=== PATIENT | female | born 1965 | race Caucasian/White ===

== ENCOUNTER → 2016-10-28 | Outpatient (CLI) | payer OTHER ==
--- NOTE | 2016-10-29 13:55 | MR ---
MR right wrist HISTORY: Radial styloid tenosynovitis HISTORY: Pain and swelling Multiplanar multisequence imaging through the right wrist Correlation to plain film 13 April 2015 There is motion on the exam. Fluid signal is present at the radial aspect of the wrist and also ulnar aspect at the radiocarpal joint extending into the the radial ulnar joint. Flexor and extensor tendo ns are intact. Bones marrow signal is maintained. There is thickening of the tendon sheaths along the radial aspect of the wrist at extensor pollicis b jackie, abductor pollicis longus with some peritendinous edema, increased signal within the tendon and tendon thickening compatible with patient's history of de Quervain's tenosynovitis. Subchondral geode formation present at the carpometacarpal joint of the first digit with some chondro malacia, subchondral eburnation and marginal spurring. Triangular fibrocartilage is somewhat out of p tank on coronal images, there is some increased signal within the mid substance suspicious for at krystle st a partial tear. Fluid in the radioulnar joint is suspicious for tear. Scapholunate, lunotriquetral ligaments felt to be intact. IMPRESSION: Findings compatible with patient's history. Difficult to exclude a tear of the triangle f ibrocartilage
== END | disposition home or self-care (01) ==
LOC: RADMRIMAIN 17:37
PROVIDERS: ATTEND Orthopaedic Surgery Hand Surgery
DX: M65.4 Radial styloid tenosynovitis [de Quervain] (principal)

== ENCOUNTER 2016-12-07 10:23 | Emergency (ER) | payer OTHER ==
[2016-12-07] MEDS ORDERED: IPRATROPIUM-ALBUTEROL 3 ML NEB INHALATION STA (11:06)
--- NOTE | 2016-12-07 11:10 | ED ---
General Adult HPI - General Chief complaint: Upper Respiratory Infection Stated complaint: Cough Time Seen by Provider: 12/07/16 11:03 Source: patient, RN notes reviewed Mode of arrival: ambulatory Limitations: no limitations - History of Present Illness Initial comments: Patient is a pleasant 51-year-old female presenting to the emergency Department with complaints of cough. Patient has had somewhat of a cough on and off for the past couple of weeks. Patient associates this with children with illnesses that she is exposed to. Patient states cough has been worse the past 3 days. Patient states she has sternal discomfort with cough only. Patient states she has headache with cough only. Patient believes she had a fever last night, subjective. Cough is dry nonproductive. Patient does feel somewhat short of breath. Patient has not been smoking for the past several days because of the cough. No leg pain or leg swelling. - Related Data Home Medications Medication Instructions Recorded Confirmed Omeprazole [PriLOSEC] 20 mg PO BID 09/05/14 12/07/16 Gabapentin [Neurontin] 300 mg PO HS 12/07/16 12/07/16 rOPINIRole HCL [Requip] 2 mg PO BID 12/07/16 12/07/16 Previous Rx's Medication Instructions Recorded Albuterol Inhaler [Ventolin Hfa 2 puff INHALATION Q4HR PRN #1 12/07/16 Inhaler] inhaler Azithromycin [Zithromax Z-pack] 250 mg PO DIRECTED #6 tab 12/07/16 methylPREDNISolone Dose Pack 24 mg PO DAILY #1 tab 12/07/16 [Medrol Dose Pack] Allergies Allergy/AdvReac Type Severity Reaction Status Date / Time Penicillins Allergy Anaphylaxis Verified 12/07/16 11:38 pregabalin [From Lyrica] AdvReac Hallucinati Verified 12/07/16 11:38 ons tramadol [From Ultram] AdvReac Itching Verified 12/07/16 11:38 sleep aides AdvReac night Uncoded 12/07/16 11:38 terrors Review of Systems ROS Statement: Those systems with pertinent positive or pertinent negative responses have been documented in the HPI. ROS Other: All systems not noted in ROS Statement are negative. Constitutional: Reports: fever, chills Eyes: Denies: eye pain ENT: Denies: ear pain Respiratory: Reports: cough Cardiovascular: Reports: chest pain (Only with cough) Endocrine: Reports: fatigue Gastrointestinal: Denies: abdominal pain Genitourinary: Denies: dysuria Musculoskeletal: Denies: back pain Skin: Denies: rash Neurological: Denies: weakness Past Medical History Past Medical History: No Reported History Additional Past Medical History / Comment(s): restless leg History of Any Multi-Drug Resistant Organisms: None Reported Past Surgical History: Section, Hysterectomy Additional Past Surgical History / Comment(s): TOTAL HYSTERECTOMY. ALEJO FOOT SX AT AGE 9 NOT SURE WHAT THEY DID, RT KNEE SX HAS STAPLE IN PLACE, RT SHOULDER SX FOR BONE SPUR, DDD Past Anesthesia/Blood Transfusion Reactions: Postoperative Nausea & Vomiting ( PONV) Additional Past Anesthesia/Blood Transfusion Reaction / Comment(s): CLAUSTERPHOBIC Past Psychological History: No Psychological Hx Reported Smoking Status: Current every day smoker Past Alcohol Use History: Occasional Additional Past Alcohol Use History / Comment(s): STARTED SMOKING AT AGE 16 IS A SOME DAY SMOKER A PACK LASTS 1 WEEK Past Drug Use History: None Reported - Past Family History Father Family Medical History: Hypertension Additional Family Medical History / Comment(s): BACK SX -CHRONIC PAIN, Mother Additional Family Medical History / Comment(s): BACK SX PT'S TWIN TATY AND SISTER BOTH OF SUDDEN [place]'S General Exam Limitations: no limitations General appearance: alert, in no apparent distress Head exam: Present: atraumatic Eye exam: Present: normal appearance, PERRL ENT exam: Present: normal oropharynx Neck exam: Present: normal inspection Respiratory exam: Present: wheezes (With cough), rhonchi Cardiovascular Exam: Present: regular rate, normal rhythm GI/Abdominal exam: Present: soft. Absent: tenderness Extremities exam: Present: normal inspection. Absent: pedal edema, calf tenderness Neurological exam: Present: alert Psychiatric exam: Present: normal affect, normal mood Skin exam: Present: normal color Course Vital Signs 12/07/16 12/07/16 12/07/16 10:52 10:55 11:09 Temperature 99 F Pulse Rate 88 88 Respiratory 22 Rate Blood Pressure 137/61 O2 Sat by Pulse 99 Oximetry 12/07/16 11:20 Temperature Pulse Rate 88 Respiratory Rate Blood Pressure O2 Sat by Pulse Oximetry Medical Decision Making - Medical Decision Making Patient reexamined and resting comfortably in bed. Lungs with rhonchi. Patient states only mild improvement with nebulizer. Patient offered further evaluation with computed tomography scan however refuses and requests discharge. - Radiology Data Radiology results: image reviewed (Chest x-ray shows no acute process) Disposition Clinical Impression: Bronchitis Disposition: HOME SELF-CARE Condition: Stable Instructions: Acute Bronchitis (ED) Additional Instructions: Please follow-up with primary care physician this week. Return for difficulty breathing, chest pain, fevers, worsening symptoms or other concerns. Prescriptions: Albuterol Inhaler [Ventolin Hfa Inhaler] 2 puff INHALATION Q4HR PRN #1 inhaler PRN Reason: Dyspnea Azithromycin [Zithromax Z-pack] 250 mg PO DIRECTED #6 tab methylPREDNISolone Dose Pack [Medrol Dose Pack] 24 mg PO DAILY #1 tab Referrals: Malina Gonzales MD [STAFF PHYSICIAN] - 1-2 days Kaity Pelletier MD [STAFF PHYSICIAN] - 1-2 days Time of Disposition: 12:27
--- NOTE | 2016-12-07 12:15 | XR ---
EXAMINATION TYPE: XR chest 2V DATE OF EXAM: 12/07/2016 12:00 PM COMPARISON: 02/16/2016 HISTORY: 51-year-old female with cough TECHNIQUE: PA and lateral views FINDINGS: The cardiomediastinal silhouette, aorta, and pulmonary vasculature are within normal limits. Lungs an d pleural spaces are clear. IMPRESSION: No acute cardiopulmonary process.
[2016-12-07 13:15] VITALS: BP 119/62; PULSE 74; RESP 18; TEMP 98.9
== END 2016-12-07 13:15 | disposition home or self-care (01) ==
LOC: EC 10:23
DX: J40 Bronchitis, not specified as acute or chronic (principal); G25.81 Restless legs syndrome; F17.200 Nicotine dependence, unspecified, uncomplicated; Z79.899 Other long term (current) drug therapy; Z88.0 Allergy status to penicillin; Z88.6 Allergy status to analgesic agent; Z88.8 Allergy status to other drugs, medicaments and biological substances
CPT/HCPCS: 71020; 94640; 99283

== ENCOUNTER 2017-07-20 08:47 | Day surgery (SDC) | payer OTHER ==
[2017-07-14 14:17] VITALS: BMI 31.8
[~2017-07-20 08:47] MED LIST: LACTATED RINGERS 1,000 ML IV SCH
[2017-07-20] MEDS ORDERED: LIDOCAINE 1% 20 ML VIAL (10MG/ML) FOR IV START INTRADERMA ONE (10:12)
[2017-07-20] MEDS ORDERED: DEXAMETHASONE SOD PHOSPHATE 10 MG/ML 1 ML VIAL IV ONE (10:24)
[2017-07-20] MEDS ORDERED: ONDANSETRON 4 MG/2 ML VIAL IVP ONE ×2 (10:25→11:48)
[2017-07-20] MEDS ORDERED: PROPOFOL 10 MG/ML 20 ML VIAL IV ONE (11:02)
[2017-07-20] MEDS ORDERED: LIDOCAINE 1% INJ 10MG/ML (20 ML MDV) ONE (11:02)
--- NOTE | 2017-07-20 11:06 | P.GSHP ---
History of Present Illness H&P Date: 07/20/17 CHIEF COMPLAINT: GERD and colon screen HISTORY OF PRESENT ILLNESS: The patient is a 52-year-old female who presents with gastroesophageal reflux disease and need for colon screen. Upper and lower endoscopy were offered for further evaluation and management. PAST MEDICAL HISTORY: Please see list. PAST SURGICAL HISTORY: Please see list. MEDICATIONS: Please see list. ALLERGIES: Please see list. SOCIAL HISTORY: No illicit drug use FAMILY HISTORY: No reports of Crohn disease or ulcerative colitis. REVIEW OF ORGAN SYSTEMS: CONSTITUTIONAL: No reports of fevers or chills. GI: Denies any blood in stools or constipation. PHYSICAL EXAM: VITAL SIGNS: Stable GENERAL: Well-developed pleasant in no acute distress. HEENT: No scleral icterus. Extraocular movements grossly intact. Moist buccal mucosa. NECK: Supple without lymphadenopathy. CHEST: Unlabored respirations. Equal bilateral excursions. CARDIOVASCULAR: Regular rate and rhythm. Distal 2+ pulses. ABDOMEN: Soft, nondistended. MUSCULOSKELETAL: No clubbing, cyanosis, or edema. ASSESSMENT: 1. Gastroesophageal reflux disease 2. Colon screen. PLAN: 1. Recommend proceeding with an upper and lower endoscopy Past Medical History Past Medical History: GERD/Reflux, Rheumatoid Arthritis (RA) Additional Past Medical History / Comment(s): restless leg syndrome, migraines, last seizure 7 yrs ago- no rx, low BP, anemia, "low immune system" History of Any Multi-Drug Resistant Organisms: None Reported Past Surgical History: Section, Hysterectomy, Orthopedic Surgery Additional Past Surgical History / Comment(s): rt knee surgery as child, rt shoulder surgery for bone spurs, C/S x 3, Eliezer oophorectomy, eliezer wrist surgery, Past Anesthesia/Blood Transfusion Reactions: Postoperative Nausea & Vomiting ( PONV) Additional Past Anesthesia/Blood Transfusion Reaction / Comment(s): CLAUSTROPHOBIC Smoking Status: Current every day smoker - Past Family History Father Family Medical History: Hypertension Additional Family Medical History / Comment(s): BACK SX -CHRONIC PAIN, Mother Family Medical History: No Reported History Additional Family Medical History / Comment(s): BACK SX PT'S TWIN BRITHER AND SISTER BOTH OF SUDDEN RI'S Medications and Allergies Home Medications Medication Instructions Recorded Confirmed Type Omeprazole [PriLOSEC] 20 mg PO DAILY 09/05/14 07/20/17 History rOPINIRole HCL [Requip] 2 mg PO BID 07/14/17 07/20/17 History Allergies Allergy/AdvReac Type Severity Reaction Status Date / Time Penicillins Allergy Anaphylaxis Verified 07/14/17 14:08 pregabalin [From Lyrica] AdvReac Hallucinati Verified 07/14/17 14:08 ons tramadol [From Ultram] AdvReac Itching Verified 07/14/17 14:08 sleep aides AdvReac night Uncoded 07/14/17 14:08 terrors Surgical - Exam Vital Signs Temp Pulse Resp BP Pulse Ox 97.5 F L 69 18 119/70 99 07/20/17 10:06 07/20/17 10:06 07/20/17 10:06 07/20/17 10:06 07/20/17 10:06
--- NOTE | 2017-07-20 11:27 | P.PCN ---
Date of Procedure: 07/20/17 Description of Procedure: PREOPERATIVE DIAGNOSIS: Colonoscopy screening. POSTOPERATIVE DIAGNOSIS: Colonoscopy screening. Colon rectal polyps. OPERATION: Colonoscopy to the ileocecal valve and appendiceal orifice. Colonoscopy cold forceps biopsies. SURGEON: Zina Cano MD. ANESTHESIA: MAC. INDICATIONS: The patient is a 52-year-old female who presents for colonoscopy screening. Benefits and risks were described and informed consent was obtained. DESCRIPTION OF PROCEDURE: The patient had undergone Gatorade, MiraLAX and Dulcolax prep. She had been brought into the operating room and laid in the left lateral decubitus position. After adequate intravenous sedation, the rectum was examined with 2% lidocaine jelly. External hemorrhoids were encountered. The rectal tone was within normal limits. No lesions were palpated in the rectal vault. An Olympus colonoscope was advanced until the ileocecal valve and appendiceal orifice were clearly viewed. The prep was fair with visualization of the mucosal folds. The scope was removed with visualization of each mucosal fold. No scattered diverticulosis was encountered. Colonic polyps cold forcep biopsy. No evidence of focal colitis was found. Retroflexion of the scope demonstrated grade 1 internal hemorrhoids without active bleeding or inflammation. The colon was desufflated. The patient had tolerated the procedure well. Withdrawal time was over 6 minutes. FINDINGS: Internal hemorrhoids, grade 1 External hemorrhoids, grade 1. No arteriovenous malformations. Removal of 1 polyp: - Cold forceps biopsy at 30 cm from the anal verge, 4 mm polyp. No large diverticulosis. No focal colitis. RECOMMENDATIONS: Repeat colonoscopy in 5 years, 2022.
--- NOTE | 2017-07-20 11:29 | P.PCN ---
Date of Procedure: 07/20/17 Description of Procedure: PREOPERATIVE DIAGNOSIS: Gastroesophageal reflux disease. POSTOPERATIVE DIAGNOSIS: Gastritis. Gastroesophageal reflux disease. Diaphragmatic hiatal hernia without obstruction. OPERATION: Esophagogastroduodenoscopy with biopsies along antrum. SURGEON: Zina Cano MD ANESTHESIA: MAC. INDICATIONS: The patient is a 52-year-old female who presents with a history of reflux disease. Benefits and risks of the procedure were described. Informed consent was obtained. DESCRIPTION: The patient was brought into the endoscopy suite and laid in the left lateral decubitus position. An Olympus gastroscope was passed along the posterior oropharynx down to the distal esophagus where the squamocolumnar junction was encountered at 35 cm from the incisors. The stomach was entered and no bile reflux was found. Additional findings are listed below. Biopsies with cold forceps were obtained of the antrum. The first through third portion of the duodenum was examined and unremarkable. Retroflexion of the scope confirmed Hill grade 4 lower esophageal valve. The squamocolumnar junction demostrated LA grade B erosive esophagitis. The stomach was desufflated. The patient tolerated the procedure well. FINDINGS: Squamocolumnar junction 35 cm from the incisors. Diaphragmatic hiatus at 40 cm. Hiatal hernia 5 cm. Hill grade 4 lower esophageal valve. LA grade B erosive esophagitis. Active duodenitis. Mild gastritis. RECOMMENDATIONS: Further recommendations pending results of pathology report. Upper endoscopy as needed. Will benefit from antireflux surgical procedure Plan - Discharge Summary New Discharge Prescriptions: No Action Omeprazole [PriLOSEC] 20 mg PO DAILY rOPINIRole HCL [Requip] 2 mg PO BID Discharge Medication List Omeprazole [PriLOSEC] 20 mg PO DAILY 09/05/14 [History] rOPINIRole HCL [Requip] 2 mg PO BID 07/14/17 [History]
[2017-07-20 23:23] VITALS: BP 113/70; PULSE 72; RESP 16; TEMP 97.5
== END 2017-07-20 12:20 | disposition home or self-care (01) ==
LOC: ORWHC2ENDO 08:47
PROVIDERS: ATTEND Surgery Plastic and Reconstructive Surgery
DX: Z12.11 Encounter for screening for malignant neoplasm of colon (principal); K29.50 Unspecified chronic gastritis without bleeding; K63.5 Polyp of colon; K44.9 Diaphragmatic hernia without obstruction or gangrene; K21.0 Gastro-esophageal reflux disease with esophagitis; K29.80 Duodenitis without bleeding; K64.0 First degree hemorrhoids; M06.9 Rheumatoid arthritis, unspecified; G25.81 Restless legs syndrome; G43.909 Migraine, unspecified, not intractable, without status migrainosus; D64.9 Anemia, unspecified; F17.200 Nicotine dependence, unspecified, uncomplicated; Z79.899 Other long term (current) drug therapy; Z88.0 Allergy status to penicillin
CPT/HCPCS: 88305; 88342; 45380; 43239; J1100; J2405; J2001; J2704

== ENCOUNTER 2017-08-05 11:36 | Emergency (ER) | payer OTHER ==
[2017-08-05 12:12] VITALS: RESP 18
[2017-08-05] MEDS ORDERED: METOCLOPRAMIDE 5 MG/ML 2 ML VIAL IVP STA (12:15)
[2017-08-05] MEDS ORDERED: PANTOPRAZOLE 40 MG/10 ML VIAL IVP STA (12:15)
[2017-08-05] MEDS ORDERED: HYDROmorphone 0.5 MG/0.5 ML SYRINGE IVP STA (12:15)
--- NOTE | 2017-08-05 12:20 | ED ---
General Adult HPI - General Chief complaint: Abdominal Pain Stated complaint: POST OP VOMITING Time Seen by Provider: 08/05/17 11:53 Source: patient, family, RN notes reviewed, old records reviewed Mode of arrival: ambulatory Limitations: no limitations - History of Present Illness Initial comments: Chief complaint and history of present illness this is a 52-year-old female here with family. The patient had her gallbladder removed laparoscopically yesterday at [facility]. After going home she started vomiting and has vomited ever since. She did have 1 urination this morning at 7 AM. Unable to keep any fluids or pain medication down. All the surgeon's office was told to come here. - Related Data Home Medications Medication Instructions Recorded Confirmed rOPINIRole HCL [Requip] 2 mg PO BID 07/14/17 08/05/17 Previous Rx's Medication Instructions Recorded Omeprazole 40 mg PO DAILY #30 capsule. 07/20/17 Ondansetron Odt [Zofran Odt] 4 mg PO Q8HR PRN #10 tab 08/05/17 Allergies Allergy/AdvReac Type Severity Reaction Status Date / Time Penicillins Allergy Anaphylaxis Verified 08/05/17 12:10 pregabalin [From Lyrica] AdvReac Hallucinati Verified 08/05/17 12:10 ons tramadol [From Ultram] AdvReac Itching Verified 08/05/17 12:10 sleep aides AdvReac night Uncoded 08/05/17 11:46 terrors Review of Systems ROS Statement: Those systems with pertinent positive or pertinent negative responses have been documented in the HPI. Review of systems. No headache or visual acuity changes no chest pain or shortness of breath she has epigastric discomfort from frequent vomiting large amounts of yellowish material. No back pain. No neuro deficits. She does have urination this morning no bowel movement since surgery. All systems are reviewed Past medical problems significant for gastritishiatal hernia with reflux. Surgeries , hysterectomy, and cholecystectomy performed yesterday at another hospital. The patient is a smoker, encouraged to stop. Denies alcohol use. Denies drug use. Family history noncontributory. ALLERGIES to penicillin , tramadol, sleep aids and pregabalin ROS Other: All systems not noted in ROS Statement are negative. Past Medical History Past Medical History: No Reported History Additional Past Medical History / Comment(s): restless leg History of Any Multi-Drug Resistant Organisms: None Reported Past Surgical History: Section, Hysterectomy Additional Past Surgical History / Comment(s): TOTAL HYSTERECTOMY. ALEJO FOOT SX AT AGE 9 NOT SURE WHAT THEY DID, RT KNEE SX HAS STAPLE IN PLACE, RT SHOULDER SX FOR BONE SPUR, DDD Past Anesthesia/Blood Transfusion Reactions: Postoperative Nausea & Vomiting ( PONV) Additional Past Anesthesia/Blood Transfusion Reaction / Comment(s): CLAUSTERPHOBIC Past Psychological History: No Psychological Hx Reported Smoking Status: Current every day smoker Past Alcohol Use History: None Reported Past Drug Use History: None Reported - Past Family History Father Family Medical History: Hypertension Additional Family Medical History / Comment(s): BACK SX -CHRONIC PAIN, Mother Family Medical History: No Reported History Additional Family Medical History / Comment(s): BACK SX PT'S TWIN TATY AND SISTER BOTH OF SUDDEN RI'S General Exam - General Exam Comments Initial Comments: General: The patient is awake and alert, nausea vomiting since going home after having had a cholecystectomy yesterday. Vital signs temp 97.6 pulse 119 respiratory rate 22 pulse ox 99% room air blood pressure 120/73 Eye: Pupils are equal, round and reactive to light, extra-ocular movements are intact ; there is normal conjunctiva bilaterally. No signs of icterus. Ears, nose, mouth and throat: There are moist mucous membranes and no oral lesions. Neck: The neck is supple, there is no tenderness . Cardiovascular: Tachycardic heart rate, 110. No murmur, rub or gallop is appreciated. Respiratory: Lungs are clear to auscultation, respirations are non-labored, breath sounds are equal. No wheezes, stridor, rales, or rhonchi. Gastrointestinal: Patient had a laparoscopic cholecystectomy yesterday. Nausea vomiting since going home yesterday from the hospital after surgery. No blood in the vomit. Yellow, bilious. Back: No back pain Musculoskeletal: Normal ROM, no tenderness, There is no pedal edema. There is no calf tenderness or swelling. Sensation intact. Pulses equal bilaterally 2+. Neurological: No complaint of a neuro deficits. No dizziness. No focal or lateralizing findings. Skin: Skin is warm and dry and no rashes or lesions are noted. Psychiatric: Patient's cooperative and appropriate. No complaint of depression. Limitations: no limitations Course Vital Signs 08/05/17 08/05/17 08/05/17 11:44 12:10 13:14 Temperature 97.6 F Pulse Rate 119 H 104 H 87 Respiratory 22 18 18 Rate Blood Pressure 120/73 108/64 107/61 O2 Sat by Pulse 99 95 96 Oximetry Medical Decision Making - Medical Decision Making Medical decision making; this is a 57-year-old female here because of vomiting. The patient had a laparoscopic cholecystectomy yesterday at [facility]. She states she's been vomiting since going home. She did not have any antinausea medications to use. The vomit was yellow to green. No bowel movement since then. She did urinate this morning. Unable to keep fluids or pain medication down because of the vomiting. Labs show white count 16.1 hemoglobin 14 hematocrit 44. Potassium 4.4 with a BUN of 18 creatinine 0.9 and GFR greater than 60. AST is 45 ALT is 104 amylase lipase within normal limits. X-ray of the abdomen was done and reviewed by radiologist his impression is; lung bases are clear. No evidence for free intraperitoneal air. No dilated small bowel. Numerous scattered small colonic air fluid levels are demonstrated. No suspicious calcifications identified. Impression; scattered small colonic air-fluid levels suggests enteritis or an ileus. No evidence of bowel obstruction or free intraperitoneal air. As read by Dr. Bunn Patient been hydrated. States she is feeling better. States she's done well in the past with Zofran. I spoke with Dr. Patino, the patient's surgeon. The patient is able to go home if she feels comfortable, she suggests a scopolamine patch placed today. And Zofran for breakthrough nausea. And follow-up in office - Lab Data Result diagrams: 08/05/17 12:05 08/05/17 12:05 Lab Results 08/05/17 08/05/17 08/05/17 Range/Units 12:05 12:05 12:05 WBC 16.1 H (3.8-10.6) k/uL RBC 4.61 (3.80-5.40) m/uL Hgb 14.4 (11.4-16.0) gm/dL Hct 44.5 (34.0-46.0) % MCV 96.6 (80.0-100.0) fL MCH 31.2 (25.0-35.0) pg MCHC 32.3 (31.0-37.0) g/dL RDW 14.2 (11.5-15.5) % Plt Count 344 (150-450) k/uL Neutrophils % 83 % Lymphocytes % 11 % Monocytes % 5 % Eosinophils % 0 % Basophils % 0 % Neutrophils # 13.3 H (1.3-7.7) k/uL Lymphocytes # 1.7 (1.0-4.8) k/uL Monocytes # 0.7 (0-1.0) k/uL Eosinophils # 0.0 (0-0.7) k/uL Basophils # 0.1 (0-0.2) k/uL Sodium 142 (137-145) mmol/L Potassium 4.4 (3.5-5.1) mmol/L Chloride 105 (98-107) mmol/L Carbon Dioxide 25 (22-30) mmol/L Anion Gap 12 mmol/L BUN 18 H (7-17) mg/dL Creatinine 0.90 (0.52-1.04) mg/dL Est GFR (MDRD) Af Amer >60 (>60 ml/min/1.73 sqM) Est GFR (MDRD) Non-Af >60 (>60 ml/min/1.73 sqM) Glucose 108 H (74-99) mg/dL Plasma Lactic Acid Lucas 1.6 (0.7-2.0) mmol/L Calcium 9.4 (8.4-10.2) mg/dL Total Bilirubin 0.5 (0.2-1.3) mg/dL AST 45 H (14-36) U/L ALT 104 H (9-52) U/L Alkaline Phosphatase 103 (38-126) U/L Total Protein 6.9 (6.3-8.2) g/dL Albumin 4.1 (3.5-5.0) g/dL Amylase 39 (30-110) U/L Lipase 40 (23-300) U/L Disposition Clinical Impression: Postoperative nausea and vomiting Disposition: HOME SELF-CARE Condition: Stable Instructions: Acute Nausea and Vomiting (ED) Additional Instructions: Grey diet slowly. Use scopolamine patch as directed. Use Zofran for breakthrough nausea. Follow-up with your surgeon. Return emergency room as needed Prescriptions: Ondansetron Odt [Zofran Odt] 4 mg PO Q8HR PRN #10 tab PRN Reason: Nausea Referrals: Jonny Mariano MD [Primary Care Provider] - 1-2 days Time of Disposition: 14:22
[2017-08-05 12:28] LABS: Basophils # (A) 0.1 k/uL (0-0.2); Basophils % (A) 0 %; Eosinophils % (A) 0 %; HCT 44.5 % (34.0-46.0); HGB 14.4 gm/dL (11.4-16.0); Lymphocytes # (A) 1.7 k/uL (1.0-4.8); Lymphocytes % (A) 11 %; MCH 31.2 pg (25.0-35.0); MCHC 32.3 g/dL (31.0-37.0); MCV 96.6 fL (80.0-100.0); Mean Platelet Volume 7.9; Monocytes # (A) 0.7 k/uL (0-1.0); Monocytes % (A) 5 %; Neutrophils # (A) 13.3 k/uL (1.3-7.7); Neutrophils % (A) 83 %; Platelet Count 344 k/uL (150-450); RBC 4.61 m/uL (3.80-5.40); RDW 14.2 % (11.5-15.5); WBC 16.1 k/uL (3.8-10.6)
[2017-08-05] MEDS: SODIUM CHLORIDE 0.9% 1,000 ML IV STA ×2 (12:36→13:58)
[2017-08-05 12:43] LABS: ALT 104 U/L (9-52); AST 45 U/L (14-36); Albumin 4.1 g/dL (3.5-5.0); Alkaline Phosphatase 103 U/L (38-126); Amylase 39 U/L (30-110); Anion Gap 12 mmol/L; Blood Urea Nitrogen 18 mg/dL (7-17); Calcium 9.4 mg/dL (8.4-10.2); Carbon Dioxide 25 mmol/L (22-30); Chloride 105 mmol/L (98-107); Glucose 108 mg/dL (74-99); Lipase 40 U/L (23-300); Potassium 4.4 mmol/L (3.5-5.1); Sodium 142 mmol/L (137-145); Total Bilirubin 0.5 mg/dL (0.2-1.3); Total Protein 6.9 g/dL (6.3-8.2)
--- NOTE | 2017-08-05 13:10 | XR ---
EXAMINATION TYPE: XR abdomen 2V DATE OF EXAM: 08/05/2017 CLINICAL DATA: 52-year-old female with abdominal pain, gallbladder surgery yesterday, [facility] COMPARISON: 01/08/2012 FINDINGS: Lung bases are clear. No evidence for free intraperitoneal air. No dilated small bowel. Numerous scattered small colonic air-fluid levels are demonstrated. No suspicious calcifications identified. IMPRESSION: 1. Scattered small colonic air-fluid levels suggests enteritis or an ileus. 2. No evidence of bowel obstruction or free intraperitoneal air.
[2017-08-05] MEDS ORDERED: HYDROmorphone 2 MG/ML 1 ML SYRINGE IVP STA (13:47)
[2017-08-05] MEDS ORDERED: SCOPOLAMINE 1.5MG/72HR PATCH TRANSDERM STA (14:12)
[2017-08-05 15:20] VITALS: BP 106/60; PULSE 82; TEMP 97.4
== END 2017-08-05 15:24 | disposition home or self-care (01) ==
LOC: EC 11:36
DX: K91.0 Vomiting following gastrointestinal surgery (principal); R00.0 Tachycardia, unspecified; G25.81 Restless legs syndrome; F17.200 Nicotine dependence, unspecified, uncomplicated; Z79.899 Other long term (current) drug therapy; Z88.0 Allergy status to penicillin; Z88.5 Allergy status to narcotic agent; Z88.8 Allergy status to other drugs, medicaments and biological substances; Z90.49 Acquired absence of other specified parts of digestive tract
CPT/HCPCS: 36415; 80053; 82150; 83605; 83690; 85025; 74019; 99284; 96374; 96375 ×2; 96376; 96361 ×3; J1170 ×2; J2765; C9113

== ENCOUNTER → 2017-10-04 | Outpatient (CLI) | payer OTHER ==
[2017-10-04 13:54] LABS: HCT 42.6 % (34.0-46.0); HGB 13.7 gm/dL (11.4-16.0); MCH 30.7 pg (25.0-35.0); MCHC 32.2 g/dL (31.0-37.0); MCV 95.5 fL (80.0-100.0); Mean Platelet Volume 8.1; Platelet Count 255 k/uL (150-450); RBC 4.46 m/uL (3.80-5.40); RDW 13.2 % (11.5-15.5); WBC 6.7 k/uL (3.8-10.6)
== END | disposition home or self-care (01) ==
LOC: LABPAT 13:04
PROVIDERS: ATTEND Surgery Plastic and Reconstructive Surgery
DX: Z01.812 Encounter for preprocedural laboratory examination (principal); K44.9 Diaphragmatic hernia without obstruction or gangrene
CPT/HCPCS: 36415; 85027

== ENCOUNTER 2017-10-07 09:00 | Inpatient (IN) | payer OTHER ==
[2017-09-29 13:11] VITALS: BMI 31.8
--- NOTE | 2017-10-07 06:53 | P.GSHP ---
History of Present Illness H&P Date: 10/07/17 CHIEF COMPLAINT:Hiatal hernia with gastroesophageal reflux disease. HISTORY OF PRESENT ILLNESS: The patient is a 52-year-old female who presents with hiatal hernia. She has completed an esophageal manometry demonstrating hypertensive upper esophageal sphincter including upper endoscopy workup. Now she presents for surgical intervention. PAST MEDICAL HISTORY: Please see list. PAST SURGICAL HISTORY: Please see list. MEDICATIONS: Please see list. ALLERGIES: Please see list. SOCIAL HISTORY: No illicit drug use FAMILY HISTORY: No reports of Crohn disease or ulcerative colitis. REVIEW OF ORGAN SYSTEMS: CONSTITUTIONAL: No reports of fevers or chills. GI: Denies any blood in stools or constipation. PHYSICAL EXAM: VITAL SIGNS: Stable GENERAL: Well-developed pleasant and in no acute distress. HEENT: No scleral icterus. Extraocular movements grossly intact. Moist buccal mucosa. NECK: Supple without lymphadenopathy. CHEST: Unlabored respirations. Equal bilateral excursions. CARDIOVASCULAR: Regular rate and rhythm. Distal 2+ pulses. ABDOMEN: Soft, nondistended. No peritoneal signs. MUSCULOSKELETAL: No clubbing, cyanosis, or edema. ASSESSMENT: 1. Diaphragmatic hiatal hernia with severe gastroesophageal reflux disease. 2. Hypertensive upper esophageal sphincter PLAN: 1. Recommend proceeding with a laparoscopic hiatal hernia with possible mesh. 2. Benefits and risks of surgical intervention was discussed including possibility of open technique. 3. Inpatient hospitalization recommended of 2 nights or less. 4. DVT prophylaxis. 5. Antibiotic prophylaxis. Past Medical History Past Medical History: GERD/Reflux, Musculoskeletal Disorder, Seizure Disorder, Skin Disorder Additional Past Medical History / Comment(s): RLS. DDD. LAST SEIZURE 2010 EST. HIATAL HERNIA. RASH ON ARMS, TO SEE DR TODAY. History of Any Multi-Drug Resistant Organisms: None Reported Past Surgical History: Section, Cholecystectomy, Hysterectomy, Orthopedic Surgery Additional Past Surgical History / Comment(s): C-SX3. TOTAL HYSTERECTOMY. ALEJO FOOT SX AT AGE 9 NOT SURE WHAT THEY DID. RT KNEE SX HAS STAPLE IN PLACE, RT SHOULDER SX FOR BONE SPUR. ALEJO HANDS. EGD 07/20/17. Past Anesthesia/Blood Transfusion Reactions: Motion Sickness, Postoperative Nausea & Vomiting (PONV) Additional Past Anesthesia/Blood Transfusion Reaction / Comment(s): SEVERE PONV. CLAUSTROPHOBIC Smoking Status: Light tobacco smoker - Past Family History Father Family Medical History: Hypertension Additional Family Medical History / Comment(s): BACK SX -CHRONIC PAIN, Mother Family Medical History: No Reported History Additional Family Medical History / Comment(s): BACK SX. Medications and Allergies Home Medications Medication Instructions Recorded Confirmed Type rOPINIRole HCL [Requip] 2 mg PO BID 07/14/17 09/29/17 History Omeprazole 40 mg PO DAILY #30 capsule. 07/20/17 09/29/17 Rx Ibuprofen [Motrin Ib] 800 mg PO Q6H PRN 09/29/17 09/29/17 History Allergies Allergy/AdvReac Type Severity Reaction Status Date / Time Penicillins Allergy Anaphylaxis Verified 09/29/17 12:40 pregabalin [From Lyrica] AdvReac Hallucinati Verified 09/29/17 12:40 ons tramadol [From Ultram] AdvReac Itching Verified 09/29/17 12:40 sleep aides AdvReac night Uncoded 09/29/17 12:40 terrors
[~2017-10-07 09:00] MED LIST changes: +CLINDAMYCIN 900 MG in DEXTROSE 5% IN WATER 50 ML IVPB ONE; +DEXAMETHASONE SOD PHOSPHATE 10 MG/ML 1 ML VIAL IV ONE; +HEPARIN SODIUM,PORCINE 5,000 UNIT/ML 1 ML VIAL SQ ONE; +MIDAZOLAM 2 MG/2 ML VIAL IV PRN; +ONDANSETRON 4 MG/2 ML VIAL IVP ONE; +SCOPOLAMINE 1.5MG/72HR PATCH TRANSDERM ONE; +SCOPOLAMINE 1.5MG/72HR PATCH TRANSDERM SCH
[2017-10-07 14:32] LABS: ALT 44 U/L (9-52); AST 31 U/L (14-36); Albumin 4.4 g/dL (3.5-5.0); Alkaline Phosphatase 105 U/L (38-126); Anion Gap 14 mmol/L; Blood Urea Nitrogen 19 mg/dL (7-17); Calcium 9.5 mg/dL (8.4-10.2); Carbon Dioxide 22 mmol/L (22-30); Chloride 109 mmol/L (98-107); Glucose 87 mg/dL (74-99); Potassium 4.8 mmol/L (3.5-5.1); Sodium 145 mmol/L (137-145); Total Bilirubin 0.5 mg/dL (0.2-1.3); Total Protein 7.3 g/dL (6.3-8.2)
[2017-10-07] MEDS ORDERED: LIDOCAINE 1% INJ 10MG/ML (20 ML MDV) ONE (15:21)
[2017-10-07] MEDS ORDERED: PROPOFOL 10 MG/ML 20 ML VIAL IV ONE (15:21)
[2017-10-07] MEDS ORDERED: ACETAMINOPHEN IV (For NPO) 1,000 MG/100 ML VIAL ONE (15:21)
[2017-10-07] MEDS ORDERED: DEXAMETHASONE SOD PHOS (MDV) 100 MG/10 ML VIAL ONE (15:21)
[2017-10-07] MEDS ORDERED: NEOSTIGMINE 1 MG/ML 10 ML VIAL ONE (15:21)
[2017-10-07] MEDS ORDERED: GLYCOPYRROLATE 0.2 MG/ML 2 ML VIAL ONE (15:21)
[2017-10-07] MEDS ORDERED: MIDAZOLAM 2 MG/2 ML VIAL ONE (15:21)
[2017-10-07] MEDS ORDERED: LABETALOL 5 MG/ML VIAL MDV ONE (15:21)
[2017-10-07] MEDS ORDERED: KETOROLAC 30 MG/ML 1 ML VIAL ONE (15:21)
[2017-10-07] MEDS ORDERED: fentaNYL (PF) 50 MCG/ML 2 ML AMP ONE (15:21)
[2017-10-07] MEDS ORDERED: SUCCINYLCHOLINE CHLORIDE 100 MG/5 ML SYR IV ONE (15:21)
[2017-10-07] MEDS ORDERED: VECURONIUM 10 MG VIAL IV ONE (15:21)
[2017-10-07] MEDS ORDERED: BUPIVACAINE (PF) 0.25% 30 ML VIAL SQ ONE (15:48)
[2017-10-07] MEDS ORDERED: NALOXONE 0.4 MG/ML 1 ML VIAL IV PRN (18:32)
[2017-10-07] MEDS ORDERED: ONDANSETRON 4 MG/2 ML VIAL IVP ONE (18:32)
[2017-10-07] MEDS ORDERED: ONDANSETRON 4 MG/2 ML VIAL IVP PRN (18:32)
[2017-10-07] MEDS ORDERED: PROMETHAZINE INJ 25 MG/ML 1 ML VIAL IVPB ONE (18:45)
[2017-10-07] MEDS: fentaNYL (PF) 50 MCG/ML 2 ML AMP IV PRN ×2 (18:50→19:01)
--- NOTE | 2017-10-07 18:52 | P.OP ---
Date of Procedure: 10/07/17 Description of Procedure: DESCRIPTION OF PROCEDURE(S): SURGEON: EDEN COSTELLO MD JAVA ENGINEER: 1. Louisa Canales. PREOPERATIVE DIAGNOSES: 1. Gastroesophageal reflux disease. 2. Paraesophageal hiatal hernia, midline. 3. Intractable nausea and vomiting 4. Obesity, BMI 31.9. 5. Chronic pain syndrome. 6. Hypertensive upper esophageal sphincter 7. History of tobacco use POSTOPERATIVE DIAGNOSES: 1. Gastroesophageal reflux disease. 2. Paraesophageal hiatal hernia, midline. 3. Intractable nausea and vomiting 4. Obesity, BMI 31.9. 5. Chronic pain syndrome. 6. Hypertensive upper esophageal sphincter 7. History of tobacco use OPERATION: 1. Robotic-assisted da Gus Xi laparoscopic reduction and repair of incarcerated paraesophageal hiatal hernia, 5 x 4 cm, with [place] Biopatch A 8 x 8 cm. 2. Intraoperative esophagogastroduodenoscopy ANESTHESIA: General with local anesthetic. ESTIMATED BLOOD LOSS: 50 mL SPECIMENS REMOVED: None. COMPLICATIONS: None. FINDINGS: 1. Thoracic length 17 cm. 2. Port placed 15 cm distal. 3. Incarcerated upper pole of the stomach within the mediastinum with dissection performed. 4. [place] Biopatch A onlay mesh placed. 5. Closure of the hiatus consistent with 56-Sammarinese bougie. INDICATIONS: The patient is a 52-year-old female who presents with epigastric pain, gastroesophageal reflux and a symptomatic diaphragmatic hiatal hernia. Preoperative workup including upper endoscopy demonstrated a Hill grade 4 lower esophageal valve. She completed an esophageal manometry demonstrating hypertensive upper esophageal sphincter. Given the severity of her symptoms, she had elected for surgical intervention. Benefits and risks including bleeding, infection, recurrence, dysphagia, injury to the lung, need for further surgery was described at length. Informed consent was obtained. DESCRIPTION: The patient was brought into the operating room and placed in supine position. Preoperatively she had received heparin subcutaneously for DVT prophylaxis. After general induction, the abdomen was prepped and draped in standard sterile fashion. The patient had previously voided prior to coming to the operating room. Ioban draping was placed along the abdomen. A timeout protocol was confirmed with the surgical team, for which the patient's name, procedure to be performed including DVT prophylaxis with bilateral SCDs, and preoperative antibiotics were also confirmed. A robotic da Gus Xi system was prepped and primed. At 15 cm from the xiphoid to just below the umbilicus, proposed port sites were marked with indelible marker along the left axillary line, left mid-clavicular line with each ports were marked 10 cm from each other. A 5 mm 0 degrees laparoscopic trocar entry was performed along the left upper quadrant. The abdomen was insufflated to 15 mmHg pressure she tolerated well. Diagnostic laparoscopy demonstrated no injury to bowel, viscera, or mesentery. A port site hernia of the right upper quadrant was identified from a previous cholecystectomy. The liver surface was unremarkable. No injury had occurred to the small bowel or viscera. Next, one 8 mm robotic port was placed along the right upper abdomen. An 8-mm port was were placed along the left lateral abdominal wall. The camera 8-mm port was maintained along the epigastrium via the hernia defect. Another 12 mm port was placed along the left upper abdominal wall after exchanging the 5 mm port. Please note that the ports were placed at least 20 cm away from the target anatomy. Care was taken to check that each robotic arm were safely away from collision with the bed or the patient. At the epigastrium, a medium sized Alejo liver retractor was placed under direct visualization with the Iron Shell Molding Roller Blast Operator placed under the right shoulder of the patient. The patient was repositioned in reverse Trendelenburg position at 14-degrees after lowering the bed. The robot was docked above the left side of the patient. Using a grasper for arm 1, a grasper for arm 3, including vessel sealer for arm 4, the robotic system was docked and primed as described. Instruments were interchanged by the household assistant. I had sat at the console. The gastrohepatic ligament was cleaved using a vessel sealer. Next, the phrenoesophageal ligament was mobilized and the distal esophagus was mobilized circumferentially. An incarcerated hernia was found along the mediastinum. As a result, deep dissection well into the mediastinum was needed to free the distal esophagus. The left and right crura was identified. Circumferentially, the hernia sac was excised and brought into the peritoneal cavity. Care was taken to avoid any gastrotomy to the incarcerated upper pole of the stomach. The measured defect was consistent with 5 cm axial length and 4 cm in width. After moderate dissection, the distal esophagus at least 3 cm was brought into the abdominal cavity. Once the hiatus and crura was dissected, 2-0 VLOC suture was placed as a running suture to re-approximate the diaphragmatic hiatus posteriorly. To buttress the repair, a [place] Biopatch A was prepared along the back table and cut as a small patch as to reinforce the repair as an underlay posteriorly. The mesh was placed along the crural repair and tagged using horizontal mattress sutures using 2-0 VLOC. I went to the head of the bed to perform intraoperative esophagogastroduodenoscopy. A 56-Sammarinese bougie was carefully placed along the posterior oropharynx through the hiatus as a visual aid for hiatus closure and then removed. I went to the head of the bed to perform intraoperative esophagogastroduodenoscopy. An Olympus gastroscope was passed through posterior oropharynx, where the GE junction was found distal to the diaphragmatic hiatus. The intra-abdominal esophageal length obtained during the case was over 2 cm. The stomach was entered. The duodenum was unremarkable. Retroflexion of the scope confirmed a Hill grade 2 lower esophageal valve. The stomach had been desufflated. No evidence of leaks were found either of the mucosal defects of the esophagus or stomach. The hiatal closure was consistent with a 56 Sammarinese bougie as a bougie was passed. This concluded the endoscopic portion of the case. The robot was undocked from the patient. I re-scrubbed into the case. All instruments and pneumoperitoneum were evacuated from the abdominal cavity. Incisions were reapproximated using 4-0 Monocryl in an interrupted subcuticular fashion. The 12-mm port site fascial defect was less than 8 mm in size. Exofin was applied to the skin. Local anesthetic was infiltrated in all wounds for postop analgesia. Multiple intra-abdominal films were obtained. At the end of the procedure, needle, sponge, and instrument count was verified correct by the a/c technician. The patient had tolerated the procedure well and was taken to the postanesthesia unit in stable condition. Intraoperative films were reviewed with the patient's family who were pleased with the level of care.
[2017-10-07] MEDS ORDERED: TRIMETHOBENZAMIDE 100 MG/ML 2 ML VIAL IM STA (18:58)
[2017-10-07] MEDS: MORPHINE SULFATE/PF 10MG/10ML VL IVP PRN (20:30)
[2017-10-07] MEDS: SIMETHICONE 40 MG/0.6 ML DROPS 2,000 MG/30 ML BOTTLE PO SCH (21:40)
[2017-10-07] MEDS: MAGNESIUM SULFATE-D5W PMX 1 GM in DEXTROSE/WATER 1 100ML.BAG IVPB SCH (23:27)
[2017-10-08] MEDS: MORPHINE SULFATE/PF 10MG/10ML VL IVP PRN ×6 (00:36→22:10)
[2017-10-08] MEDS: HYOSCYAMINE ORAL DROPS 1.875 MG/15 ML BOTTLE PO SCH ×4 (00:42→18:02)
[2017-10-08] MEDS: SIMETHICONE 40 MG/0.6 ML DROPS 2,000 MG/30 ML BOTTLE PO SCH ×4 (00:45→18:01)
[2017-10-08] MEDS: CLINDAMYCIN 900 MG in DEXTROSE 5% IN WATER 50 ML IVPB SCH ×4 (00:48→09:19)
[2017-10-08] MEDS: DEXAMETHASONE SOD PHOSPHATE 4 MG/ML 1 ML VIAL IV SCH ×4 (00:52→18:01)
[2017-10-08] MEDS: MAGNESIUM SULFATE-D5W PMX 1 GM in DEXTROSE/WATER 1 100ML.BAG IVPB SCH ×3 (01:27→03:35)
[2017-10-08] MEDS: 0.9% NACL WITH KCL 20 MEQ/L 1,000 ML IV SCH ×4 (03:25→20:54)
[2017-10-08] MEDS: diphenhydrAMINE 50 MG/ML 1 ML VIAL IVP PRN ×2 (03:56→21:15)
[2017-10-08 07:06] LABS: Basophils % (A) 0 %; Eosinophils % (A) 0 %; HCT 37.8 % (34.0-46.0); HGB 12.1 gm/dL (11.4-16.0); Lymphocytes # (A) 1.1 k/uL (1.0-4.8); Lymphocytes % (A) 12 %; MCH 30.3 pg (25.0-35.0); MCHC 32.2 g/dL (31.0-37.0); MCV 94.2 fL (80.0-100.0); Mean Platelet Volume 7.9; Monocytes # (A) 0.4 k/uL (0-1.0); Monocytes % (A) 4 %; Neutrophils # (A) 7.2 k/uL (1.3-7.7); Neutrophils % (A) 83 %; Platelet Count 248 k/uL (150-450); RBC 4.01 m/uL (3.80-5.40); RDW 13.5 % (11.5-15.5); WBC 8.8 k/uL (3.8-10.6)
[2017-10-08 07:30] LABS: Anion Gap 14 mmol/L; Blood Urea Nitrogen 11 mg/dL (7-17); Carbon Dioxide 22 mmol/L (22-30); Chloride 109 mmol/L (98-107); Magnesium 2.6 mg/dL (1.6-2.3); Phosphorus 2.7 mg/dL (2.5-4.5); Potassium 4.4 mmol/L (3.5-5.1); Sodium 145 mmol/L (137-145)
[2017-10-08] MEDS ORDERED: PANTOPRAZOLE 40 MG/10 ML VIAL IV SCH (09:00)
--- NOTE | 2017-10-08 09:15 | FL ---
EXAMINATION TYPE: FL UGI DATE OF EXAM ORDERED: 10/08/2017 8:54 AM HISTORY: Status post Daniel fundoplication and esophageal dilatation. COMPARISON: None. FINDINGS: The patient drank contrast with ease. There is prompt egress of contrast from the esophagu s into the stomach. There is no evidence of extravasation. There is a tiny amount of free air. IMPRESSION: STATUS POST DANIEL FUNDOPLICATION.
--- NOTE | 2017-10-08 10:51 | P.PN ---
Subjective Progress Note Date: 10/08/17 Principal diagnosis: Hiatal hernia Patient says she is doing somewhat better today. She said she had a lot of pain last night. Complaining of soreness in her throat and also the upper abdomen. Slightly tachycardic this morning with a T-max of 100. White blood cell count 8.8. Tolerating liquids. Upper GI shows no evidence of leak or obstruction. Objective - Vital Signs Vital signs: Vital Signs Temp 98.2 F 10/08/17 08:09 Pulse 97 10/08/17 08:09 Resp 16 10/08/17 08:09 BP 107/68 10/08/17 08:09 Pulse Ox 95 10/08/17 08:09 Intake & Output 10/07/17 10/08/17 10/08/17 18:59 06:59 18:59 Intake Total 1556 280 200 Output Total 50 2550 Balance 1506 -2270 200 Weight 81.647 kg Intake: IV 1556 Oral 280 200 Output: Urine 2550 Estimated Blood Loss 50 Other: Voiding Method Toilet Toilet # Voids 1 - Exam Abdomen: Soft, nondistended, mild tenderness, dressings intact - Labs CBC & Chem 7: 10/08/17 06:49 10/08/17 06:49 Labs: Abnormal Lab Results - Last 24 Hours (Table) 10/07/17 10/07/17 10/08/17 Range/Units 14:10 19:35 06:49 Chloride 109 H 109 H (98-107) mmol/L BUN 19 H (7-17) mg/dL Magnesium 1.5 L 2.6 H (1.6-2.3) mg/dL Assessment and Plan (1) Hiatal hernia Narrative/Plan: Continue clear liquids. Continue pain medications. Increase activity. Incentive spirometry. Current Visit: Yes Status: Acute Code(s): K44.9 - DIAPHRAGMATIC HERNIA WITHOUT OBSTRUCTION OR GANGRENE SNOMED Code(s): 68746126
[2017-10-08] MEDS: KETOROLAC 30 MG/ML 1 ML VIAL IVP SCH ×2 (12:25→18:02)
[2017-10-08] MEDS ORDERED: HYDROcodone/APAP 15 ML SOLUTION PO ONE (12:36)
[2017-10-08] MEDS ORDERED: HYDROcodone/APAP 15 ML SOLUTION PO PRN (12:36)
[2017-10-08] MEDS ORDERED: KETOROLAC 30 MG/ML 1 ML VIAL IVP SCH (19:00)
--- NOTE | 2017-10-08 20:50 | P.DS ---
Providers Date of admission: 10/07/17 12:30 Expected date of discharge: 10/09/17 Attending physician: Zina Cano Primary care physician: Jonny Mariano - Discharge Diagnosis(es) (1) Incarcerated paraesophageal hernia Current Visit: Yes Status: Acute (2) Gastroesophageal reflux Current Visit: Yes Status: Acute (3) Disorder of upper esophageal sphincter Current Visit: Yes Status: Acute (4) Restless leg syndrome Current Visit: Yes Status: Acute (5) Hypomagnesemia Current Visit: Yes Status: Acute (6) Obesity (BMI 30.0-34.9) Current Visit: Yes Status: Acute Hospital Course: The patient is a 52-year-old female status post robotic-assisted hiatal hernia repair with mesh for incarcerated paraesophageal hiatal hernia. She had postoperative pain which have been poorly controlled immediately after surgery and hence her continued hospitalization. After adjustment of her pain meds, she is much more comfortable today. She is tolerating liquids. Chest discomfort is moderately improved. Postoperative care instructions and dietary instructions were reviewed in detail. She had an esophagram which was unremarkable. Patient was sent for discharge schedule for the morning. Pertinent Studies: Esophagram negative for leaks or obstruction Procedures: Robotic hiatal hernia repair for incarcerated paraesophageal hiatal hernia with mesh, intraoperative esophagogastroduodenoscopy Patient Condition at Discharge: Stable Plan - Discharge Summary Discharge Rx Participant: Yes New Discharge Prescriptions: New Bisacodyl [Dulcolax] 5 mg PO DAILY PRN #10 tablet. PRN Reason: Constipation Ondansetron Odt [Zofran Odt] 4 mg PO Q8HR PRN #9 tab PRN Reason: Nausea Simethicone 40 mg/0.6 ml Drops [Mylicon Drops] 40 mg PO PCHS PRN #30 ml PRN Reason: Gas HYDROcodone/APAP [[place] Elixir 7.5-325Mg/15Ml] 15 ml PO Q6H PRN #300 solution PRN Reason: Pain Discontinued Omeprazole 40 mg PO DAILY #30 capsule. No Action rOPINIRole HCL [Requip] 2 mg PO BID Ibuprofen [Motrin Ib] 800 mg PO Q6H PRN PRN Reason: Pain Discharge Medication List rOPINIRole HCL [Requip] 2 mg PO BID 07/14/17 [History] Ibuprofen [Motrin Ib] 800 mg PO Q6H PRN 09/29/17 [History] Bisacodyl [Dulcolax] 5 mg PO DAILY PRN #10 tablet. 10/07/17 [Rx] HYDROcodone/APAP [[place] Elixir 7.5-325Mg/15Ml] 15 ml PO Q6H PRN #300 solution [Rx] Ondansetron Odt [Zofran Odt] 4 mg PO Q8HR PRN #9 tab 10/07/17 [Rx] Simethicone 40 mg/0.6 ml Drops [Mylicon Drops] 40 mg PO PCHS PRN #30 ml [Rx] Follow up Appointment(s)/Referral(s): Zina Cano MD [STAFF PHYSICIAN] - 10/18/17 Patient Instructions/Handouts: Laparoscopic Hiatal Hernia Repair (DC) Activity/Diet/Wound Care/Special Instructions: No lifting over 4 pounds in 4 weeks. May shower. No bathtub soaks. Avoid straws. No carbonated beverages. Liquid diet only with protein shakes per diet sheet for 2 weeks. Discharge Disposition: HOME SELF-CARE
[2017-10-09] MEDS: SIMETHICONE 40 MG/0.6 ML DROPS 2,000 MG/30 ML BOTTLE PO SCH ×2 (00:01→06:25)
[2017-10-09] MEDS: DEXAMETHASONE SOD PHOSPHATE 4 MG/ML 1 ML VIAL IV SCH ×2 (00:02→07:24)
[2017-10-09] MEDS: KETOROLAC 30 MG/ML 1 ML VIAL IVP SCH ×2 (00:03→07:18)
[2017-10-09 00:10] VITALS: BP 97/53; PULSE 69; RESP 14; TEMP 98
[2017-10-09] MEDS: MORPHINE SULFATE/PF 10MG/10ML VL IVP PRN (02:20)
[2017-10-09] MEDS: 0.9% NACL WITH KCL 20 MEQ/L 1,000 ML IV SCH (04:51)
[2017-10-09] MEDS: HYOSCYAMINE ORAL DROPS 1.875 MG/15 ML BOTTLE PO SCH ×2 (06:40)
[2017-10-09] MEDS ORDERED: BISACODYL 5 MG TABLET.DR PO PRN (08:00)
[2017-10-09 08:01] LABS: Magnesium 2.1 mg/dL (1.6-2.3)
[2017-10-09 09:03] LABS: T4, Free (Free Thyroxine) 0.79 ng/dL (0.78-2.19)
[2017-10-09 19:40] LABS: Hemoglobin A1C 5.3 % (4.0-6.0)
== END 2017-10-09 07:26 | disposition home or self-care (01) | DRG 328 ==
LOC: 2ORMAIN 12:30 → 6PED 18:48
PROVIDERS: ADMIT Surgery Plastic and Reconstructive Surgery; ATTEND Surgery Plastic and Reconstructive Surgery
PROC: 0DJ08ZZ Inspection of Upper Intestinal Tract, Via Natural or Artificial Opening Endoscopic (ICD-10-PCS; 2017-10-07)
PROC: 8E0W4CZ Robotic Assisted Procedure of Trunk Region, Percutaneous Endoscopic Approach (ICD-10-PCS; 2017-10-07)
PROC: 0BUT4JZ Supplement Diaphragm with Synthetic Substitute, Percutaneous Endoscopic Approach (ICD-10-PCS; principal; 2017-10-07 15:40)
DX: K44.0 Diaphragmatic hernia with obstruction, without gangrene (principal); E83.42 Hypomagnesemia; E66.9 Obesity, unspecified; G25.81 Restless legs syndrome; G40.909 Epilepsy, unspecified, not intractable, without status epilepticus; G89.4 Chronic pain syndrome; K21.9 Gastro-esophageal reflux disease without esophagitis; R21 Rash and other nonspecific skin eruption; R07.89 Other chest pain; K22.8 Other specified diseases of esophagus; F17.210 Nicotine dependence, cigarettes, uncomplicated; F40.240 Claustrophobia; Z79.899 Other long term (current) drug therapy; Z90.710 Acquired absence of both cervix and uterus; Z90.49 Acquired absence of other specified parts of digestive tract; Z68.31 Body mass index [BMI] 31.0-31.9, adult; Z88.5 Allergy status to narcotic agent; Z88.0 Allergy status to penicillin; Z88.8 Allergy status to other drugs, medicaments and biological substances; Z82.49 Family history of ischemic heart disease and other diseases of the circulatory system
CPT/HCPCS: 74240; 80051; 80053; 82310; 82565; 83036; 83735; 84100; 84439; 84443; 84520; 85025; 86850; 86900; 86901

== ENCOUNTER → 2018-01-23 | Outpatient (CLI) | payer OTHER ==
--- NOTE | 2018-01-23 17:26 | XR ---
EXAMINATION TYPE: XR knee complete RT DATE OF EXAM: 01/23/2018 COMPARISON: 12/29/2012 HISTORY: 52-year-old female with right knee pain for 6 weeks. Surgery 40 years ago. TECHNIQUE: 3 views FINDINGS: 3 large surgical jerry are present at the level of the tibial tuberosity. No abnormal lucency along the jerry. Mild degenerative spurring in the patellofemoral compartment. Small knee joint effusion is noted. Subtle meniscal chondrocalcinosis involving the medial meniscus. No acute fracture, sublux ation, or dislocation. IMPRESSION: 1. Similar very mild degenerative spurring in the patellofemoral compartment. 2. Large surgical jerry redemonstrated at the tibial tuberosity probably due to prior patellar real ignment. 3. Small knee joint effusion. No acute osseous abnormality seen.
== END | disposition home or self-care (01) ==
LOC: RADXRMAIN 14:09
PROVIDERS: ATTEND Family Medicine
DX: M76.51 Patellar tendinitis, right knee (principal); M25.461 Effusion, right knee

== ENCOUNTER → 2018-04-06 | Outpatient (CLI) | payer OTHER ==
--- NOTE | 2018-04-06 11:22 | XR ---
EXAMINATION TYPE: XR finger RT DATE OF EXAM: 04/06/2018 CLINICAL HISTORY: pain Left fourth digit. TECHNIQUE: 3 views of the Left fourth digit are submitted. COMPARISON: None FINDINGS: No displaced fracture is seen with certainty. Joint spaces are well-preserved. Mild soft t issue swelling noted. IMPRESSION: No acute displaced fracture or dislocation.
== END | disposition home or self-care (01) ==
LOC: RADXRMAIN 10:58
PROVIDERS: ATTEND Physician Assistant
DX: M79.645 Pain in left finger(s) (principal)

== ENCOUNTER 2018-04-10 13:02 | Emergency (ER) | payer OTHER ==
[2018-04-10 13:07] VITALS: BP 118/74; PULSE 71; RESP 20; TEMP 97.8
[2018-04-10] MEDS ORDERED: PROPARACAINE 0.5% OPHTH DROPS 15 ML BTL BOTH EYES STA (13:21)
[2018-04-10] MEDS ORDERED: ERYTHROMYCIN 5 MG/GM OPHTH OINT 3.5 GM TUBE BOTH EYES STA (13:51)
--- NOTE | 2018-04-10 14:12 | ED ---
Eye Problem HPI - General Chief complaint: Eye Problems Stated complaint: eye problem Time Seen by Provider: 04/10/18 13:21 Source: patient, RN notes reviewed, old records reviewed Mode of arrival: ambulatory Limitations: no limitations - History of Present Illness Initial comments: 53 year old female with 2 days of R eye irritation. She believes she may have rubbed her eye or caused something to go into her eye. She denies visual acuity change. She has had no significant drainage today. She reports she wears glasses. Denies any other complaints. - Related Data Home Medications Medication Instructions Recorded Confirmed rOPINIRole HCL [Requip] 2 mg PO BID 07/14/17 10/07/17 Ibuprofen [Motrin Ib] 800 mg PO Q6H PRN 09/29/17 10/07/17 Previous Rx's Medication Instructions Recorded Bisacodyl [Dulcolax] 5 mg PO DAILY PRN #10 tablet. 10/07/17 HYDROcodone/APAP [[place] Elixir 15 ml PO Q6H PRN #300 solution 10/07/17 7.5-325Mg/15Ml] Ondansetron Odt [Zofran Odt] 4 mg PO Q8HR PRN #9 tab 10/07/17 Simethicone 40 mg/0.6 ml Drops 40 mg PO PCHS PRN #30 ml 10/07/17 [Mylicon Drops] Erythromycin Ophth Oint [Romycin 1 applic RIGHT EYE QID #1 tube 04/10/18 Ophth Oint] Allergies Allergy/AdvReac Type Severity Reaction Status Date / Time Penicillins Allergy Anaphylaxis Verified 04/10/18 13:07 pregabalin [From Lyrica] AdvReac Hallucinati Verified 04/10/18 13:07 ons tramadol [From Ultram] AdvReac Itching Verified 04/10/18 13:07 sleep aides AdvReac night Uncoded 04/10/18 13:07 terrors Review of Systems ROS Statement: Those systems with pertinent positive or pertinent negative responses have been documented in the HPI. ROS Other: All systems not noted in ROS Statement are negative. Past Medical History Past Medical History: GERD/Reflux, Musculoskeletal Disorder, Seizure Disorder, Skin Disorder Additional Past Medical History / Comment(s): RLS. DDD. LAST SEIZURE 2009 EST. HIATAL HERNIA. RASH ON ARMS, TO SEE TODAY. History of Any Multi-Drug Resistant Organisms: None Reported Past Surgical History: Section, Cholecystectomy, Hysterectomy, Orthopedic Surgery Additional Past Surgical History / Comment(s): C-SX3. TOTAL HYSTERECTOMY. ALEJO FOOT SX AT AGE 9 NOT SURE WHAT THEY DID. RT KNEE SX HAS STAPLE IN PLACE, RT SHOULDER SX FOR BONE SPUR. ALEJO HANDS. EGD 07/20/17. Past Anesthesia/Blood Transfusion Reactions: Motion Sickness, Postoperative Nausea & Vomiting (PONV) Additional Past Anesthesia/Blood Transfusion Reaction / Comment(s): SEVERE PONV. CLAUSTROPHOBIC Past Psychological History: No Psychological Hx Reported Smoking Status: Light tobacco smoker Past Alcohol Use History: Occasional Past Drug Use History: None Reported - Past Family History Father Family Medical History: Hypertension Additional Family Medical History / Comment(s): BACK SX -CHRONIC PAIN, Mother Family Medical History: No Reported History Additional Family Medical History / Comment(s): BACK SX. General Exam - General Exam Comments Initial Comments: Well appearing 53 year old female, no distress. Limitations: no limitations General appearance: alert, in no apparent distress Head exam: Present: atraumatic, normocephalic, normal inspection Eye exam: Present: normal appearance, PERRL, EOMI, conjunctival injection (R eye injection, evidence of small corneal abrasion over 4 oclock position. ). Absent: scleral icterus, periorbital swelling Expanded Eyelids: Normal Inspection: Bilateral Pupils: Regular, Round: Bilateral Sclera/Conjunctival: Injection: Right (corneal abrasion 4 oclock) IOP (R) in mmH IOP (L) in mmH IOP measured with: Tonopen ENT exam: Present: normal exam, mucous membranes moist Neck exam: Present: normal inspection. Absent: tenderness, meningismus, lymphadenopathy Respiratory exam: Present: normal lung sounds bilaterally. Absent: respiratory distress, wheezes, rales, rhonchi, stridor Cardiovascular Exam: Present: regular rate, normal rhythm, normal heart sounds. Absent: systolic murmur, diastolic murmur, rubs, gallop, clicks GI/Abdominal exam: Present: soft, normal bowel sounds. Absent: distended, tenderness, guarding, rebound, rigid Extremities exam: Present: normal inspection, full ROM, normal capillary refill. Absent: tenderness, pedal edema, joint swelling, calf tenderness Back exam: Present: normal inspection Neurological exam: Present: alert, oriented X3, CN II-XII intact Course Vital Signs 04/10/18 13:04 Temperature 97.8 F Pulse Rate 71 Respiratory 20 Rate Blood Pressure 118/74 O2 Sat by Pulse 100 Oximetry Medical Decision Making - Medical Decision Making 53 year old glasses wearing patient presents with R eye pain and injection. No evidence of foreign body, evidence of corneal abrasion at 4 oclock. No evidence of corneal ulceration. At this time IOP is within normal limits and visual acuity intact. She was sgarted on erythromycin eye ointment, close return parameters discussed. Discussed opthalmology follow up. Disposition Clinical Impression: Corneal abrasion Disposition: HOME SELF-CARE Condition: Good Instructions: Corneal Abrasion (ED) Additional Instructions: Patient advised to follow-up with quote clerk within the next 1-2 days if symptoms persist. Return to the emergency department if any alarming signs or symptoms occur. Prescriptions: Erythromycin Ophth Oint [Romycin Ophth Oint] 1 applic RIGHT EYE QID #1 tube Is patient prescribed a controlled substance at d/c from ED?: No Referrals: Con Dang DO [Primary Care Provider] - 1-2 days Josefa Vargas MD [STAFF PHYSICIAN] - 1-2 days Time of Disposition: 14:11
== END 2018-04-10 14:34 | disposition home or self-care (01) ==
LOC: EC 13:02
DX: S05.01XA Injury of conjunctiva and corneal abrasion without foreign body, right eye, initial encounter (principal); F17.200 Nicotine dependence, unspecified, uncomplicated; Z88.0 Allergy status to penicillin; Z88.8 Allergy status to other drugs, medicaments and biological substances; Z88.5 Allergy status to narcotic agent; Z91.048 Other nonmedicinal substance allergy status; Z79.899 Other long term (current) drug therapy; X58.XXXA Exposure to other specified factors, initial encounter
CPT/HCPCS: 99283

== ENCOUNTER → 2018-04-28 | Outpatient (CLI) | payer OTHER ==
--- NOTE | 2018-04-28 13:19 | XR ---
EXAMINATION TYPE: XR wrist limited RT DATE OF EXAM: 04/28/2018 CLINICAL HISTORY: Chronic pain after surgery one year ago. TECHNIQUE: Frontal and lateral images of the right wrist are obtained. COMPARISON: None FINDINGS: There is no acute fracture/dislocation evident in the right wrist. Radiocarpal joint space loss is present. There is narrowing and mild spurring at ulnar base of first metacarpal. The overly ing soft tissue appears unremarkable. IMPRESSION: As above.
== END | disposition home or self-care (01) ==
LOC: RADXRMAIN 12:34
DX: M25.831 Other specified joint disorders, right wrist (principal)

== ENCOUNTER → 2018-06-23 | Outpatient (CLI) | payer OTHER ==
--- NOTE | 2018-06-23 15:33 | FL ---
Fluoroscopic guided right wrist arthrogram: CLINICAL HISTORY: Wrist pain possible TFCC tear FINDINGS: The procedure was explained to the patient. The risks, complications, benefits and alternatives were discussed and any questions were answered. Informed consent was obtained. Patient was placed sitti ng upright position with the wrist flexed ovary at the level and prepped and draped in the usual ster ile fashion. Utilizing a 25 gauge needle, access into the radiocarpal joint was achieved. A tiny regis t injection confirmed the needle within the joint space. Diluted gadolinium solution of 2.5 cc was in jected into the joint space and the patient was taken MRI suite for imaging. The wrist was exercised for short period time by the technologist. 1 minute and 13 seconds of fluoroscopy and T2 images are submitted. Patient was stable throughout the procedure. All elements of maximal barrier and sterile technique were utilized. IMPRESSION: 1. Successful right wrist arthrogram with MRI pending.
--- NOTE | 2018-06-27 06:45 | MR ---
EXAMINATION TYPE: MR arthrogram right wrist DATE OF EXAM: 06/23/2018 COMPARISON: Radiographs 04/28/2018 and MRI wrist 10/28/2016 HISTORY: 53-year-old female Pain in right wrist, past hx of surgery Technique: Multiplanar, multisequence images of the right wrist were obtained following intra-articul ar injection of a gadolinium mixture. Please refer to arthrogram report of the same day for further d etails. FINDINGS: There is a signal void at the radiocarpal and ulnocarpal joint spaces with signal void extending into the distal radioulnar joint. Findings compatible with inadvertent high concentration collection of g adolinium. However, T1-weighted fat-saturated sequences show dilute gadolinium that has extended into the midcar pal compartment. This appears to be secondary to a perforation through the proximal portion of the sc apholunate ligament. There is attenuated appearance with increased signal of the dorsal portion of th e scapholunate ligament but some intact fibers are visualized. No angela defect is identified involving the lunotriquetral ligament but assessment is limited due to the adjacent signal void. There is moderate degenerative change at the first CMC joint with marginal spurring and prominent sub chondral cystic change. There is mild patchy marrow edema centered within the proximal aspect of the lunate and mild within t he proximal triquetrum with subtle focal subchondral bony irregularity at the ulnar proximal aspect o f the lunate, refer to coronal PD images 10 and 11. Review of the patient's recent radiographs shows slight positive ulnar variance. Again, there is extension of signal void compatible with concentrated gadolinium into the distal radi al ulnar joint. Findings compatible with TFC tear. Detailed assessment of the TFC is limited due to o bscuration from the signal void. There are multiple slips in the first dorsal compartment in the location of the APL and EPB suggestin g either normal variation with multiple tendon slips or split tears. No significant tenosynovial flui d at this time. Some minimal intrasubstance change is present in the extensor carpi ulnaris. Otherwise, the dorsal extensor and volar flexor tendon appears satisfactory. The median nerve shows normal signal and caliber. No suspicious bone marrow replacement. IMPRESSION: 1. Exam limitations due to concentrated collection of gadolinium in the radiocarpal joint resulting i n signal void. 2. However, dilute gadolinium makes its way into the midcarpal compartment. This appears to be due to a perforation of the proximal portion of the scapholunate ligament. There is also sprain/partial tea r of the dorsal portion but some intact fibers are visualized. 3. The concentrated gadolinium (signal void) extends into the distal radioulnar joint compatible with TFC tear. 4. There is new chondromalacia and mild bony irregularity along the proximal ulnar aspect of the kari te and mild patchy edema within both proximal lunate and triquetrum. 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 5. Moderate osteoarthrosis at the base of the thumb. 6. Either multiple split tears or normal variation with multiple tendon slips involving the APL/EPB i n the first dorsal compartment. Mild intrasubstance change within the ECU.
== END | disposition home or self-care (01) ==
LOC: RADFLMAIN 13:00
PROVIDERS: ATTEND Orthopaedic Surgery Hand Surgery
DX: M94.231 Chondromalacia, right wrist (principal); M19.041 Primary osteoarthritis, right hand
CPT/HCPCS: 25246; 73115; 73222; A9585; Q9967

== ENCOUNTER 2018-11-08 11:06 | Emergency (ER) | payer OTHER ==
[2018-11-08 11:13] VITALS: BP 139/89; PULSE 95; RESP 18; TEMP 98.3
[2018-11-08] MEDS ORDERED: PANTOPRAZOLE 40 MG/10 ML VIAL IVP STA (11:43)
[2018-11-08] MEDS ORDERED: MAG HYDROX/AL HYDROX/SIMETH 30 ML, HYOSCYAMINE ELIXIR 10 ML, CIMETIDINE HCL 300 MG, LID... PO STA ×4 (11:43)
--- NOTE | 2018-11-08 11:47 | ED ---
General Adult HPI - General Chief complaint: Shortness of Breath Stated complaint: cough, heartburn Time Seen by Provider: 11/08/18 11:10 Source: patient, RN notes reviewed Mode of arrival: wheelchair Limitations: no limitations - History of Present Illness Initial comments: This is a 53-year-old female who presents emergency Department with a past medi elsy history significant for gastric reflux. Patient states about a year and half ago she had a fundoplication. Patient states over the last 2 weeks she's been having a lot of reflux it's going up into her throat and is been making her cough. Patient states the cough is been consistent and she's tried multiple and antacids to help it but it does not seem to be helping her. Patient states bending over definitely makes it worse lying flat definitely makes it worse. Patient states she is also taking Prilosec on occasion and that has not seemed to help either. Patient states she continues to smoke. Patient states she continues to take Motrin daily for hand pain. And patient states she has not been drinking as much as she normally does and she does still drink caffeine. Patient denies any chest pressure she complains of pain is like a burning. Patient denies any recent fever chills. Patient denies any sputum production. Patient denies abdominal pain patient denies any vomiting diarrhea. Patient denies headache patient denies numbness weakness. - Related Data Home Medications Medication Instructions Recorded Confirmed rOPINIRole HCL [Requip] 2 mg PO BID 07/14/17 11/08/18 Ibuprofen [Motrin Ib] 800 mg PO Q6H PRN 09/29/17 11/08/18 Allergies Allergy/AdvReac Type Severity Reaction Status Date / Time Penicillins Allergy Anaphylaxis Verified 11/08/18 11:47 pregabalin [From Lyrica] AdvReac Hallucinati Verified 11/08/18 11:47 ons tramadol [From Ultram] AdvReac Itching Verified 11/08/18 11:47 sleep aides AdvReac night Uncoded 11/08/18 11:13 terrors Review of Systems ROS Statement: Those systems with pertinent positive or pertinent negative responses have been documented in the HPI. ROS Other: All systems not noted in ROS Statement are negative. Past Medical History Past Medical History: GERD/Reflux, Musculoskeletal Disorder, Seizure Disorder, Skin Disorder Additional Past Medical History / Comment(s): RLS. DDD. LAST SEIZURE 2009 EST. HIATAL HERNIA. RASH ON ARMS, TO SEE TODAY. History of Any Multi-Drug Resistant Organisms: None Reported Past Surgical History: Section, Cholecystectomy, Hernia Repair, Hysterectomy, Orthopedic Surgery Additional Past Surgical History / Comment(s): C-SX3. TOTAL HYSTERECTOMY. ALEJO FOOT SX AT AGE 9 NOT SURE WHAT THEY DID. RT KNEE SX HAS STAPLE IN PLACE, RT SHOULDER SX FOR BONE SPUR. ALEJO HANDS. EGD 07/20/17. Past Anesthesia/Blood Transfusion Reactions: Motion Sickness, Postoperative Nausea & Vomiting (PONV) Additional Past Anesthesia/Blood Transfusion Reaction / Comment(s): SEVERE PONV. CLAUSTROPHOBIC Past Psychological History: No Psychological Hx Reported Smoking Status: Light tobacco smoker Past Alcohol Use History: Occasional Past Drug Use History: None Reported - Past Family History Father Family Medical History: Hypertension Additional Family Medical History / Comment(s): BACK SX -CHRONIC PAIN, Mother Family Medical History: No Reported History Additional Family Medical History / Comment(s): BACK SX. General Exam - General Exam Comments Initial Comments: GENERAL: Patient is well-developed and well-nourished. Patient is nontoxic and well-hyd rated and is in mild distress. ENT: Neck is soft and supple. No significant lymphadenopathy is noted. Oropharynx is clear. Moist mucous membranes. Neck has full range of motion without eliciting any pain. EYES: The sclera were anicteric and conjunctiva were pink and moist. Extraocular movements were intact and pupils were equal round and reactive to light. Eyelids were unremarkable. PULMONARY: Unlabored respirations. Good breath sounds bilaterally. No audible rales rhonchi or wheezing was noted. CARDIOVASCULAR: There is a regular rate and rhythm without any murmurs gallops or rubs. ABDOMEN: Soft and nontender with normal bowel sounds. SKIN: Skin is clear with no lesions or rashes and otherwise unremarkable. NEUROLOGIC: Patient is alert and oriented x3. Cranial nerves II through XII are grossly intact. Motor and sensory are also intact. Normal speech, volume and content. Symmetrical smile. MUSCULOSKELETAL: Normal extremities with adequate strength and full range of motion. No lower extremity swelling or edema. No calf tenderness. LYMPHATICS: No significant lymphadenopathy is noted PSYCHIATRIC: Normal psychiatric evaluation. Limitations: no limitations Course Vital Signs 11/08/18 11:08 Temperature 98.3 F Pulse Rate 95 Respiratory 18 Rate Blood Pressure 139/89 O2 Sat by Pulse 99 Oximetry Medical Decision Making - Medical Decision Making EKG shows normal sinus rhythm at 82 bpm NH interval 264 QRS 84 QT interval 352 QTC is 411. Patient's EKG shows no ST segment elevation or depression or T wave abnormalities are noted. Patient received a GI cocktail as well as Prilosec in the emergency department she stated it did not seem to help that much. Dr. Busby came down and visited with the patient and decided to get an esophagram. Dr. Busby and wanted the patient follow-up as an outpatient with her. Patient had an esophagram that was normal. - Lab Data Result diagrams: 11/08/18 12:16 11/08/18 12:16 Lab Results 11/08/18 11/08/18 11/08/18 Range/Units 12:16 12:16 12:16 WBC 7.7 (3.8-10.6) k/uL RBC 4.16 (3.80-5.40) m/uL Hgb 13.3 (11.4-16.0) gm/dL Hct 39.8 (34.0-46.0) % MCV 95.6 (80.0-100.0) fL MCH 32.1 (25.0-35.0) pg MCHC 33.5 (31.0-37.0) g/dL RDW 14.2 (11.5-15.5) % Plt Count 293 (150-450) k/uL Neutrophils % 59 % Lymphocytes % 34 % Monocytes % 3 % Eosinophils % 1 % Basophils % 0 % Neutrophils # 4.5 (1.3-7.7) k/uL Lymphocytes # 2.6 (1.0-4.8) k/uL Monocytes # 0.3 (0-1.0) k/uL Eosinophils # 0.1 (0-0.7) k/uL Basophils # 0.0 (0-0.2) k/uL PT 9.7 (9.0-12.0) sec INR 0.9 (<1.2) APTT 22.2 (22.0-30.0) sec Sodium 139 (137-145) mmol/L Potassium 3.9 (3.5-5.1) mmol/L Chloride 106 (98-107) mmol/L Carbon Dioxide 23 (22-30) mmol/L Anion Gap 10 mmol/L BUN 9 (7-17) mg/dL Creatinine 0.64 (0.52-1.04) mg/dL Est GFR (CKD-EPI)AfAm >90 (>60 ml/min/1.73 sqM) Est GFR (CKD-EPI)NonAf >90 (>60 ml/min/1.73 sqM) Glucose 95 (74-99) mg/dL Calcium 9.9 (8.4-10.2) mg/dL Magnesium 1.6 (1.6-2.3) mg/dL Total Bilirubin 0.5 (0.2-1.3) mg/dL AST 30 (14-36) U/L ALT 52 (9-52) U/L Alkaline Phosphatase 138 H (38-126) U/L Troponin I (0.000-0.034) ng/mL Total Protein 7.2 (6.3-8.2) g/dL Albumin 4.4 (3.5-5.0) g/dL 11/08/18 Range/Units 12:16 WBC (3.8-10.6) k/uL RBC (3.80-5.40) m/uL Hgb (11.4-16.0) gm/dL Hct (34.0-46.0) % MCV (80.0-100.0) fL MCH (25.0-35.0) pg MCHC (31.0-37.0) g/dL RDW (11.5-15.5) % Plt Count (150-450) k/uL Neutrophils % % Lymphocytes % % Monocytes % % Eosinophils % % Basophils % % Neutrophils # (1.3-7.7) k/uL Lymphocytes # (1.0-4.8) k/uL Monocytes # (0-1.0) k/uL Eosinophils # (0-0.7) k/uL Basophils # (0-0.2) k/uL PT (9.0-12.0) sec INR (<1.2) APTT (22.0-30.0) sec Sodium (137-145) mmol/L Potassium (3.5-5.1) mmol/L Chloride (98-107) mmol/L Carbon Dioxide (22-30) mmol/L Anion Gap mmol/L BUN (7-17) mg/dL Creatinine (0.52-1.04) mg/dL Est GFR (CKD-EPI)AfAm (>60 ml/min/1.73 sqM) Est GFR (CKD-EPI)NonAf (>60 ml/min/1.73 sqM) Glucose (74-99) mg/dL Calcium (8.4-10.2) mg/dL Magnesium (1.6-2.3) mg/dL Total Bilirubin (0.2-1.3) mg/dL AST (14-36) U/L ALT (9-52) U/L Alkaline Phosphatase (38-126) U/L Troponin I <0.012 (0.000-0.034) ng/mL Total Protein (6.3-8.2) g/dL Albumin (3.5-5.0) g/dL Disposition Clinical Impression: Gastric reflux Disposition: HOME SELF-CARE Instructions (If sedation given, give patient instructions): Gastroesophageal Reflux Disease (ED) Additional Instructions: Patient should take Prilosec daily and Pepcid twice a day. patient can take Maalox for acute exacerbations of discomfort. Patient should quit smoking patient should avoid alcohol patient should avoid caffeine patient should avoid eating late at night and patient should avoid any heavy lifting or bending over which can increase intra-abdominal pressure. Is patient prescribed a controlled substance at d/c from ED?: No Referrals: Con Dang DO [Primary Care Provider] - 1-2 days Time of Disposition: 16:19
[2018-11-08 12:34] LABS: INR 0.9 (<1.2); Partial Thromboplastin Time 22.2 sec (22.0-30.0); Prothrombin Time 9.7 sec (9.0-12.0)
[2018-11-08 12:36] LABS: Basophils % (A) 0 %; Eosinophils # (A) 0.1 k/uL (0-0.7); Eosinophils % (A) 1 %; HCT 39.8 % (34.0-46.0); HGB 13.3 gm/dL (11.4-16.0); Lymphocytes # (A) 2.6 k/uL (1.0-4.8); Lymphocytes % (A) 34 %; MCH 32.1 pg (25.0-35.0); MCHC 33.5 g/dL (31.0-37.0); MCV 95.6 fL (80.0-100.0); Mean Platelet Volume 7.5; Monocytes # (A) 0.3 k/uL (0-1.0); Monocytes % (A) 3 %; Neutrophils # (A) 4.5 k/uL (1.3-7.7); Neutrophils % (A) 59 %; Platelet Count 293 k/uL (150-450); RBC 4.16 m/uL (3.80-5.40); RDW 14.2 % (11.5-15.5); WBC 7.7 k/uL (3.8-10.6)
[2018-11-08 12:49] LABS: ALT 52 U/L (9-52); AST 30 U/L (14-36); Albumin 4.4 g/dL (3.5-5.0); Alkaline Phosphatase 138 U/L (38-126); Anion Gap 10 mmol/L; Blood Urea Nitrogen 9 mg/dL (7-17); Calcium 9.9 mg/dL (8.4-10.2); Carbon Dioxide 23 mmol/L (22-30); Chloride 106 mmol/L (98-107); Glucose 95 mg/dL (74-99); Magnesium 1.6 mg/dL (1.6-2.3); Potassium 3.9 mmol/L (3.5-5.1); Sodium 139 mmol/L (137-145); Total Bilirubin 0.5 mg/dL (0.2-1.3); Total Protein 7.2 g/dL (6.3-8.2)
--- NOTE | 2018-11-08 12:49 | XR ---
EXAMINATION TYPE: XR chest 2V DATE OF EXAM: 11/08/2018 COMPARISON: 12/07/2016 INDICATION: Difficulty breathing, chest pressure TECHNIQUE: Frontal and lateral views of the chest are obtained. FINDINGS: The heart size is normal. The pulmonary vasculature is normal. The lungs are clear. IMPRESSION: 1. No acute pulmonary process.
[2018-11-08] MEDS ORDERED: ACETAMINOPHEN TAB 500 MG TAB PO STA (14:10)
--- NOTE | 2018-11-08 16:15 | P.GSCN ---
History of Present Illness Consult date: 11/08/18 Requesting physician: Bonifacio Caban History of present illness: CHIEF COMPLAINT: Abdominal pain HISTORY OF PRESENT ILLNESS: The patient is a 53 year old female who reports over two-month history of recurrent gastroesophageal reflux disease. "The acid goes into my throat.". This coincides with recent flu as well as recent surgery along her right hand. Prior to that she was doing very well. "Medications doesn't take care of the burn.". She reports last night the acid was in the back of her throat and she is brought in today in the emergency room secondary to chest pain. Her history is significant for previous hiatal hernia repair done over one year ago. She also confirms not compliance with her post-hiatal hernia repair surgery where she continued to smoke. She reports having intractable nausea and vomiting also 2 months ago which coincides with the start of her symptoms. PAST MEDICAL HISTORY: See list. PAST SURGICAL HISTORY: See list. MEDICATIONS: See list. ALLERGIES: See list. SOCIAL HISTORY: Tobacco abuse FAMILY HISTORY: No reports of Crohn's disease or inflammatory bowel disease REVIEW OF ORGAN SYSTEMS: CONSTITUTIONAL: No fevers or chills. EYES: Denies any trouble with vision. No glasses. HEENT: No difficulties with hearing. No nosebleeds. RESPIRATORY: Denies pneumonia. Has troubles with breathing or dyspnea on exertion. CARDIOVASCULAR: Had chest pain, palpitations. No recent heart attacks. GASTROINTESTINAL: Denies fatty food intolerance. Denies change in bowel habits and gas bloat. GENITOURINARY: Denies any blood in urine or increased urinary frequency. NEUROLOGICAL: No seizure disorders or headaches. MUSCULOSKELETAL: Has back pain, stiffness or joint arthritis. SKIN: No current skin cancer. No rash. PSYCHIATRIC: Denies current depression or suicidal thoughts. ENDOCRINE: Denies current thyroid disorders. Denies any blood sugar glucose intolerance. HEME/LYMPHATIC: Denies any lumps and bumps around the neck. No recent deep venous thrombosis. ALLERGY/IMMUNOLOGY: No immunoglobulin therapy. No immune deficiencies. BREAST: Denies current breast lumps, pain or nipple discharge. PHYSICAL EXAM: VITALS: Reviewed CONSTITUTIONAL: Well developed and in no acute distress. EYES: Conjuctivae without sclera icterus. Pupils are equally round and reactive to light. Extraocular movements grossly intact. HEAD, EARS, NOSE, THROAT: Moist buccal mucosa. Head is atraumatic, normocephalic. Hears conversational speech. No nasal drainage. NECK: Supple. No JV distention. No thyroidomegaly. RESPIRATORY: Non-labored respirations and equal bilateral excursions. No gross wheezes. CARDIOVASCULAR: Regular rate and rhythm. Extremities without moderate edema. Palpable 2+ radial pulses. ABDOMEN: No hepatomegaly. Soft. Nondistended. No peritonitis LYMPH: No neck lymphadenopathy. MUSCULOSKELETAL: Nail and fingers with good capillary refill. No clubbing, cyanosis, or edema SKIN: Warm and well perfused with good skin turgor. NEUROLOGIC: Cranial nerves I through XII grossly intact. Sensation upper and extremities intact. No focal or lateralizing signs. PSYCH: Appropriate affect. Alert and oriented to person, place and time. CLINCAL LABS: Reviewed all within normal limits RADIOLOGY: Report reviewed chest x-ray without acute pulmonary process IMAGING: Independently reviewed without recurrent hernia identified on chest x- ray RECORDS: previous old records reviewed of past surgery with hiatal hernia repair without fundoplication ASSESSMENT: 1. Atypical chest pain 2. Gastroesophageal reflux disease 3. Noncompliance with post-hiatal hernia instructions. 4. Chronic tobacco abuse PLAN: 1. Recommend esophagram as she also complained of "my throat closes. " 2. Recommend omeprazole, Zantac for symptoms 3. Recommend hospitalization for any evidence of esophageal obstruction Thank you for this kind consultation. ADDENDUM: Esophagram independently reviewed demonstrating no evidence of esophageal obstruction or reflux disease. Patient may be discharged with follow-up as outpatient. Past Medical History Past Medical History: GERD/Reflux, Musculoskeletal Disorder, Seizure Disorder, Skin Disorder Additional Past Medical History / Comment(s): RLS. DDD. LAST SEIZURE 2009 EST. HIATAL HERNIA. RASH ON ARMS, TO SEE DR TODAY. History of Any Multi-Drug Resistant Organisms: None Reported Past Surgical History: Section, Cholecystectomy, Hernia Repair, Hysterectomy, Orthopedic Surgery Additional Past Surgical History / Comment(s): C-SX3. TOTAL HYSTERECTOMY. ALEJO FOOT SX AT AGE 9 NOT SURE WHAT THEY DID. RT KNEE SX HAS STAPLE IN PLACE, RT SHOULDER SX FOR BONE SPUR. ALEJO HANDS. EGD 07/20/17. Past Anesthesia/Blood Transfusion Reactions: Motion Sickness, Postoperative Nausea & Vomiting (PONV) Additional Past Anesthesia/Blood Transfusion Reaction / Comm: SEVERE PONV. CLAUSTROPHOBIC Past Psychological History: No Psychological Hx Reported Smoking Status: Light tobacco smoker Past Alcohol Use History: Occasional Past Drug Use History: None Reported - Past Family History Father Family Medical History: Hypertension Additional Family Medical History / Comment(s): BACK SX -CHRONIC PAIN, Mother Family Medical History: No Reported History Additional Family Medical History / Comment(s): BACK SX. Medications and Allergies Home Medications Medication Instructions Recorded Confirmed Type rOPINIRole HCL [Requip] 2 mg PO BID 07/14/17 11/08/18 History Ibuprofen [Motrin Ib] 800 mg PO Q6H PRN 09/29/17 11/08/18 History Allergies Allergy/AdvReac Type Severity Reaction Status Date / Time Penicillins Allergy Anaphylaxis Verified 11/08/18 11:47 pregabalin [From Lyrica] AdvReac Hallucinati Verified 11/08/18 11:47 ons tramadol [From Ultram] AdvReac Itching Verified 11/08/18 11:47 sleep aides AdvReac night Uncoded 11/08/18 11:13 terrors Surgical - Exam Vital Signs Temp Pulse Resp BP Pulse Ox 98.3 F 95 18 139/89 99 11/08/18 11:08 11/08/18 11:08 11/08/18 11:08 11/08/18 11:08 11/08/18 11:08 Results - Labs 11/08/18 12:16 11/08/18 12:16 Abnormal Lab Results - Last 24 Hours (Table) 11/08/18 Range/Units 12:16 Alkaline Phosphatase 138 H (38-126) U/L Diabetes panel 11/08/18 Range/Units 12:16 Sodium 139 (137-145) mmol/L Potassium 3.9 (3.5-5.1) mmol/L Chloride 106 (98-107) mmol/L Carbon Dioxide 23 (22-30) mmol/L BUN 9 (7-17) mg/dL Creatinine 0.64 (0.52-1.04) mg/dL Glucose 95 (74-99) mg/dL Calcium 9.9 (8.4-10.2) mg/dL AST 30 (14-36) U/L ALT 52 (9-52) U/L Alkaline Phosphatase 138 H (38-126) U/L Total Protein 7.2 (6.3-8.2) g/dL Albumin 4.4 (3.5-5.0) g/dL Calcium panel 11/08/18 Range/Units 12:16 Calcium 9.9 (8.4-10.2) mg/dL Albumin 4.4 (3.5-5.0) g/dL Pituitary panel 11/08/18 Range/Units 12:16 Sodium 139 (137-145) mmol/L Potassium 3.9 (3.5-5.1) mmol/L Chloride 106 (98-107) mmol/L Carbon Dioxide 23 (22-30) mmol/L BUN 9 (7-17) mg/dL Creatinine 0.64 (0.52-1.04) mg/dL Glucose 95 (74-99) mg/dL Calcium 9.9 (8.4-10.2) mg/dL Adrenal panel 11/08/18 Range/Units 12:16 Sodium 139 (137-145) mmol/L Potassium 3.9 (3.5-5.1) mmol/L Chloride 106 (98-107) mmol/L Carbon Dioxide 23 (22-30) mmol/L BUN 9 (7-17) mg/dL Creatinine 0.64 (0.52-1.04) mg/dL Glucose 95 (74-99) mg/dL Calcium 9.9 (8.4-10.2) mg/dL Total Bilirubin 0.5 (0.2-1.3) mg/dL AST 30 (14-36) U/L ALT 52 (9-52) U/L Alkaline Phosphatase 138 H (38-126) U/L Total Protein 7.2 (6.3-8.2) g/dL Albumin 4.4 (3.5-5.0) g/dL - Imaging Chest x-ray: report reviewed, image reviewed Assessment and Plan (1) Tobacco abuse Status: Acute Code(s): Z72.0 - TOBACCO USE SNOMED Code(s): 420881836 (2) Atypical chest pain Status: Acute Code(s): R07.89 - OTHER CHEST PAIN SNOMED Code(s): 258185422 (3) Noncompliance of patient with dietary regimen Status: Acute Code(s): Z91.11 - PATIENT'S NONCOMPLIANCE WITH DIETARY REGIMEN SNOMED Code(s): 098362156 (4) Chest pain Status: Acute Code(s): R07.9 - CHEST PAIN, UNSPECIFIED SNOMED Code(s): 72263199 (5) Gastroesophageal reflux Status: Acute Code(s): K21.9 - GASTRO-ESOPHAGEAL REFLUX DISEASE WITHOUT ESOPHAGITIS SNOMED Code(s): 225732127 (6) Obesity (BMI 30.0-34.9) Status: Acute Code(s): E66.9 - OBESITY, UNSPECIFIED SNOMED Code(s): 083228627029084
--- NOTE | 2018-11-08 16:33 | FL ---
EXAMINATION TYPE: FL barium swallow DATE OF EXAM: 11/08/2018 COMPARISON: None HISTORY: Reflux TECHNIQUE: A single contrast UGI study is performed. Isovue was utilized. 1 minute 16 seconds fluoroscopy time was provided for the procedure. 9 images were obtained. FINDINGS: Contrast freely transits the esophagus. No intraluminal or extramural defects are evident. A few tert iary contractions were evident during the examination. No significant hesitancy passing through the gastroesophageal junction is evident. No focal narrowing is evident. Prior Olman fundoplication is not identified. Patient was placed in the horizontal position for drinking. There is complete stripping of the esopha geal bolus. No reflux could be elicited during this examination. IMPRESSIONS: 1. Normal water-soluble esophagram. No significant narrowing at the gastroesophageal junction is evid ent. Reflux was not elicited during the exam.
== END 2018-11-08 16:52 | disposition home or self-care (01) ==
LOC: EC 11:06
DX: K21.9 Gastro-esophageal reflux disease without esophagitis (principal); R05 Cough; G25.81 Restless legs syndrome; F17.200 Nicotine dependence, unspecified, uncomplicated; Z79.899 Other long term (current) drug therapy; Z88.5 Allergy status to narcotic agent; Z88.0 Allergy status to penicillin; Z91.048 Other nonmedicinal substance allergy status; Z88.8 Allergy status to other drugs, medicaments and biological substances; Z90.49 Acquired absence of other specified parts of digestive tract
CPT/HCPCS: 36415; 93005; 80053; 83735; 84484; 85025; 85610; 85730; 74220; 71046; 99285; 96374; C9113; Q9967

== ENCOUNTER → 2018-11-14 | Outpatient (CLI) | payer OTHER ==
--- NOTE | 2018-11-14 19:10 | FL ---
EXAMINATION TYPE: Right wrist fluoroscopic-guided arthrogram injection. DATE OF EXAM: 11/14/2018 HISTORY: 53-year-old female with right wrist pain. Patient reports a dorsal release surgery 2 years a go. Surgery 3 months ago to clean up to joint space. Complains of pain in the right wrist. PROCEDURES: 1. Right wrist fluoroscopy. 2. Right wrist arthrogram. TECHNIQUE: The procedure, risks, and alternatives, were discussed with the patient, who requested that we procee d. The consent form was signed, and teach-back occurred. The site/side of the procedure was marked with a line with participation by the patient. The accompan georgette paperwork was verified for consistency. A directed history and physical exam was performed prior to the procedure. Medication reconciliation was performed by ancillary personnel. A critical pause was performed with assisting personnel just pr ior to the procedure, and the patient's identity was confirmed using 2 identifiers. Imaging guidance was utilized to select the precise skin entry point just prior to the procedure. The dorsal right wrist was prepped and draped in the usual sterile fashion and local 1% lidocaine ane sthesia was instilled. Under fluoroscopic guidance, a 1.5 inch 25 gauge needle was introduced into t he dorsal aspect of the radioscaphoid joint. Appropriate needle tip position was confirmed after a sm all amount of contrast injection. Approximately 3 ml of a mixture of Isovue 300 iodinated contrast, Gadavist, and sterile saline (initi al 20ml mixture comprised of 5 mL Isovue-300, 15 mL sterile saline, and 0.07 mL Gadavist) was injecte d into the wrist joint. The needle was then removed. The patient tolerated the procedure well. There was no immediate complication. After the procedure, the patient's condition was unchanged. Estimated blood loss was minimal. Arthrogram images show angela TFC tear with contrast extending into the distal radioulnar joint. Prese ntly, no contrast extension into the midcarpal compartment is encountered. The scapholunate interval is measured at 1.7 mm. IMPRESSION: Technically successful right wrist arthrogram injection for MRI. No immediate complication. Arthrogram images confirm TFC tear. However, there is no contrast extension into the midcarpal compar tment presently. Findings suggest intact scapholunate ligament.
--- NOTE | 2018-11-16 04:30 | MR ---
EXAMINATION TYPE: MR wrist arthrogram RT w con DATE OF EXAM: 11/14/2018 COMPARISON: 06/23/2018 HISTORY: 53-year-old female with right wrist pain, R/O ligament tear, abutment syndrome, surgery Jul 2018 Technique: Multiplanar, multisequence images of the right wrist were obtained following intra-articul ar injection of a gadolinium mixture. Please refer to arthrogram injection report of the same day for complete findings and impression. FINDINGS: While injected contrast was not identified in the mid carpal compartment on radiographs following the arthrogram injection, MRI images show contrast now accumulated in this location. Findings in keeping with the perforation of the proximal portion of the scapholunate ligament seen on the prior exam as well. There is some heterogeneous signal of the dorsal scapholunate ligament suggesting injury withou t angela tear. The lunotriquetral ligament appears grossly intact. Redemonstrated angela extension of contrast into the distal radioulnar joint secondary to a third thic kness defect of the central portion of the TFC. There is subchondral marrow signal change, cystic change, and subchondral bony irregularity along the proximal ulnar aspect of the lunate bone. Subchondral marrow signal change as well as bony irregularity has progressed to now involve the mid a spect of the proximal lunate where there is overlying irregular cartilage loss. Focal subchondral mar row edema along the volar lip of the distal radius. There is redemonstrated moderate degenerative change at the first CMC joint with marginal spurring an d prominent subchondral cystic change. There is subchondral geode has enlarged now measuring 1.1 cm. On the current exam, the APL appears thickened. The suggestion of multiple tendon slip seen previousl y is not as well-demonstrated. The EPB is diminutive as seen previously. Findings may reflect sequela of prior De Quervain's and tendon release given the history provided by the patient. In addition, there is an extra tendon slip within the second dorsal compartment, possibly an extra sl ip of the ECRL. This was present in retrospect on the patient's prior exam. Some minimal intrasubstance change is present in the extensor carpi ulnaris. Otherwise, the remaining dorsal extensor and volar flexor tendon appears satisfactory. The median nerve shows normal signal and caliber. No suspicious bone marrow replacement. IMPRESSION: 1. A through thickness tear involving the central portion of the TFC with prominent chondromalacia al jonathan the ulnar proximal aspect of the lunate and accompanying subchondral signal changes. 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 No obvious tear of the lunotriquetral ligament. 2. Additional subchondral bony irregularity involving the proximal midportion of the lunate with over lying irregular cartilage loss and new degenerative subchondral signal change within the distal radiu s. 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 3. Redemonstrated moderate OA at the base of the thumb. 4. Contrast has made its way into the midcarpal compartment through a perforation in the proximal por tion of the scapholunate ligament. This could represent a degenerative tear. There are also some sign al changes in the dorsal portion of the ligament that could represent degenerative signal or old spra in. 5. Thickened APL and diminutive EPB. Possibly sequela of a prior De Quervain's and tendon release giv en additional history provided by the patient. The multiple tendon slips/split tears seen on the prio r exam are not well demonstrated currently. 6. An additional tendon slip within the second dorsal compartment, possibly an extra slip of the ECRL was also present in retrospect.
== END ==
LOC: RADFLMAIN 10:08
PROVIDERS: ATTEND Orthopaedic Surgery Hand Surgery
DX: S63.591A Other specified sprain of right wrist, initial encounter (principal); M94.231 Chondromalacia, right wrist; M19.041 Primary osteoarthritis, right hand; M62.89 Other specified disorders of muscle; C92.40 Acute promyelocytic leukemia, not having achieved remission; R93.7 Abnormal findings on diagnostic imaging of other parts of musculoskeletal system
CPT/HCPCS: 25246; 73115; 73222; A9585; Q9967

== ENCOUNTER 2019-01-02 17:31 | Emergency (ER) | payer OTHER ==
[2019-01-02] MEDS ORDERED: HYDROcodone/APAP 7.5-325MG 1 EACH TAB PO ONE (18:32)
--- NOTE | 2019-01-02 19:00 | ED ---
General Adult HPI - General Chief complaint: Recheck/Abnormal Lab/Rx Stated complaint: Has cast on arm wound is burning Time Seen by Provider: 01/02/19 18:00 Source: patient, RN notes reviewed, old records reviewed Mode of arrival: ambulatory Limitations: no limitations - History of Present Illness Initial comments: 53-year-old female patient presents ED for recheck of cast on right lower arm. Patient reports that she had a surgery to repair reported encroachment on her right carpal bones. Patient reports that she follows up with orthopedic surgeon Dr. Martin. Patient reports that she has been sweating the last 3 days in the heat which is causing a lot of itching and discomfort in the cast in her right arm. Patient also reports that she has having a significant amount of pain in this region. Patient states that she has been having pain since the surgery and states that has been overall very painful process. Patient states that the pain is not significantly worse. Patient states that she touch base with her orthopedic surgeon today and expresses concerns. She states that she was told by the orthopedic surgeon to present to the ER and have the cast removed and evaluated. Patient denies any falls or trauma to arm. Denies any other complaints at this time. Denies any chest pain shortness breath abdominal pain nausea vomiting or diarrhea. Systemic: Pt denies fatigue, fever/chills, rash. Pt denies weakness, night sweats, weight loss. Neuro: Pt denies headache, visual disturbances, syncope or pre-syncope. HEENT: Pt denies ocular discharge or irritation, otalgia, rhinorrhea, pharyngitis or notable lymphadenopathy. Cardiopulmonary: Pt denies chest pain, SOB, heart palpitations, dyspnea on exertion. Abdominal/GI: Pt denies abdominal pain, n/v/d. : Pt denies dysuria, burning w/ urination, frequency/urgency. Denies new onset urinary or bowel incontinence. MSK: Pt denies loss of strength or function in extremities. Neuro: Pt denies new onset weakness, paresthesias. - Related Data Home Medications Medication Instructions Recorded Confirmed rOPINIRole HCL [Requip] 2 mg PO BID 07/14/17 01/02/19 Allergies Allergy/AdvReac Type Severity Reaction Status Date / Time Penicillins Allergy Anaphylaxis Verified 01/02/19 18:00 pregabalin [From Lyrica] AdvReac Hallucinati Verified 01/02/19 18:00 ons tramadol [From Ultram] AdvReac Itching Verified 01/02/19 18:00 sleep aides AdvReac night Uncoded 01/02/19 17:40 terrors Review of Systems ROS Statement: Those systems with pertinent positive or pertinent negative responses have been documented in the HPI. ROS Other: All systems not noted in ROS Statement are negative. Past Medical History Past Medical History: GERD/Reflux, Musculoskeletal Disorder, Seizure Disorder, Skin Disorder Additional Past Medical History / Comment(s): RLS. DDD. LAST SEIZURE 2009 EST. HIATAL HERNIA. RASH ON ARMS, TO SEE DR TODAY. History of Any Multi-Drug Resistant Organisms: None Reported Past Surgical History: Section, Cholecystectomy, Hernia Repair, Hysterectomy, Orthopedic Surgery Additional Past Surgical History / Comment(s): C-SX3. TOTAL HYSTERECTOMY. ALEJO FOOT SX AT AGE 9 NOT SURE WHAT THEY DID. RT KNEE SX HAS STAPLE IN PLACE, RT SHOULDER SX FOR BONE SPUR. ALEJO HANDS. EGD 07/20/17. Past Anesthesia/Blood Transfusion Reactions: Motion Sickness, Postoperative Nausea & Vomiting (PONV) Additional Past Anesthesia/Blood Transfusion Reaction / Comment(s): SEVERE PONV. CLAUSTROPHOBIC Past Psychological History: No Psychological Hx Reported Smoking Status: Light tobacco smoker Past Alcohol Use History: Occasional Past Drug Use History: None Reported - Past Family History Father Family Medical History: Hypertension Additional Family Medical History / Comment(s): BACK SX -CHRONIC PAIN, Mother Family Medical History: No Reported History Additional Family Medical History / Comment(s): BACK SX. General Exam - General Exam Comments Initial Comments: Constitutional: NAD, AOX3, Pt has pleasant affect. HEENT: NC/AT, trachea midline, neck supple, no lymphadenopathy. Posterior pharynx non erythematous, without exudates. External ears appear normal, without discharge. Mucous membranes moist. Eyes PERRLA, EOM intact. There is no scleral icterus. No pallor noted. Cardiopulmonary: RRR, no murmurs, rubs or gallops, no JVD noted. Lungs CTAB in anterior and posterior cooper. No peripheral edema. Abdominal exam: Abdomen soft and non-distended. Abdomen non-tender to palpation in all 4 quadrants. Bowel sounds active in LLQ. No hepatosplenomegaly. No ecchymosis Neuro: CN II-XII grossly intact. No nuchal rigidity. No raccon eyes, no hrat sign, no hemotympanum. No cervical spinal tenderness. MSK: No posterior calf tenderness bilaterally, homans sign negative bilaterally. Posterior tibialis and radial pulse +2 bilaterally. Sensation intact in upper and lower extremities. Full active ROM in upper and lower extremities, 5/5 stregnth. Derm: Cast removed in bivalve fashion. Dermatologic exam did not reveal any erythema. Incision site appears be healed well, dry, no erythema, no ecc hymoses. There is mild tenderness over incision site. Radial pulse +2. Capillary refill <2 seconds in all digits. Sensation intact. Arm was cleaned. Patient was placed in ulnar gutter splint. neurovascularly intact after splint placement. Limitations: no limitations Course Vital Signs 01/02/19 17:35 Temperature 98.2 F Pulse Rate 98 Respiratory 16 Rate Blood Pressure 126/86 O2 Sat by Pulse 97 Oximetry Medical Decision Making - Medical Decision Making 53-year-old female patient presents ED for recheck of cast on right lower arm. Patient reports that she had a surgery to repair reported encroachment on her r ight carpal bones. Patient reports that she follows up with orthopedic surgeon Dr. Martin. Patient reports that she has been sweating the last 3 days in the heat which is causing a lot of itching and discomfort in the cast in her right arm. Patient also reports that she has having a significant amount of pain in this region. Patient states that she has been having pain since the surgery and states that has been overall very painful process. Patient states that the pain is not significantly worse. Patient states that she touch base with her orthopedic surgeon today and expresses concerns. She states that she was told by the orthopedic surgeon to present to the ER and have the cast removed and evaluated. Patient denies any falls or trauma to arm. Denies any other complaints at this time. Denies any chest pain shortness breath abdominal pain nausea vomiting or diarrhea. Pt vital signs stable afebrile. Physical exam displayed: Cast removed in bivalve fashion. Dermatologic exam did not reveal any erythema. Incision site appears be healed well, dry, no erythema, no ecchymoses. There is mild tenderness over incision site. Arm was cleaned. Radial pulse +2. Capillary refill <2 seconds in all digits. Sensation intact. Patient was placed in ulnar gutter splint. neurovascularly intact after splint placement. Shared decision making the patient, to patient having any also tr auma to wrist imaging will be forego to this time. Patient discharged will follow up with orthopedic surgeon tomorrow. Patient will return to ER if condition worsens. Pt administered home dose of pain medication, pt not driving home. Case discussed with Dr. Priest. Disposition Clinical Impression: Arthralgia Disposition: HOME SELF-CARE Condition: Stable Instructions (If sedation given, give patient instructions): Arthralgia (ED) Additional Instructions: Patient to adhere to previously discussed treatment plan and will take medication(s) as directed. Patient to follow up with PCP in 1-2 days. Patient to return to ED if symptoms do not improve. Follow-up with primary care provider and orthopedic surgeon tomorrow. Return to ER if condition worsens. Is patient prescribed a controlled substance at d/c from ED?: No Referrals: Con Dang DO [Primary Care Provider] - 1-2 days
[2019-01-02 19:36] VITALS: BP 121/80; PULSE 92; RESP 18; TEMP 98
== END 2019-01-02 19:35 | disposition home or self-care (01) ==
LOC: EC 17:31
DX: M79.601 Pain in right arm (principal); G25.81 Restless legs syndrome; F17.200 Nicotine dependence, unspecified, uncomplicated; Z79.899 Other long term (current) drug therapy; Z88.5 Allergy status to narcotic agent; Z88.0 Allergy status to penicillin; Z88.8 Allergy status to other drugs, medicaments and biological substances; Z91.048 Other nonmedicinal substance allergy status
CPT/HCPCS: 29125; 99283

== ENCOUNTER → 2019-05-22 | Outpatient (CLI) | payer OTHER ==
--- NOTE | 2019-05-22 10:26 | XR ---
EXAMINATION TYPE: XR Hip Complete RT DATE OF EXAM: 05/22/2019 CLINICAL HISTORY: Right hip pain TECHNIQUE: AP and frogleg views of the right hip are obtained. COMPARISON: None. FINDINGS: There is no acute fracture/dislocation evident in the right hip. The joint space in the r ight hip appears aligned. There are few subtle subchondral cysts of the lateral acetabular roof.. The overlying soft tissue appears unremarkable. No cam deformity seen. No suspicious osseous lesion iden tified IMPRESSION: There is no acute fracture or dislocation in the right hip. Mild right femoral acetabula r arthropathy.
--- NOTE | 2019-05-22 10:27 | XR ---
EXAMINATION TYPE: XR lumbar spine 2 or 3V DATE OF EXAM: 05/22/2019 CLINICAL HISTORY: Low back pain TECHNIQUE: Frontal and lateral images of the lumbar spine are obtained. COMPARISON: None FINDINGS: There are 5 lumbar type vertebral bodies identified. Lumbar bodies demonstrate maintained vertebral body heights and alignment. Multilevel facet arthropathy from L3 through S1. Multilevel sma ll anterior osteophytes throughout the lumbar spine. Pedicles and transverse processes appear unremar kable. No dilated bowel. IMPRESSION: No acute fracture or malalignment is seen in the lumbar spine. Mild multilevel degenerat ana lilia disc disease of the lumbar spine.
== END | disposition home or self-care (01) ==
LOC: RADXRMAIN 09:39
PROVIDERS: ATTEND Physician Assistant
DX: M51.36 Other intervertebral disc degeneration, lumbar region (principal); M13.851 Other specified arthritis, right hip
CPT/HCPCS: 72100; 73502

== ENCOUNTER 2019-08-15 10:28 | Emergency (ER) | payer OTHER ==
--- NOTE | 2019-08-15 11:33 | XR ---
EXAMINATION TYPE: XR chest 2V DATE OF EXAM: 08/15/2019 COMPARISON: 11/08/2018 HISTORY: Cough and congestion TECHNIQUE: Frontal and lateral views of the chest are obtained. FINDINGS: There is no focal air space opacity, pleural effusion, or pneumothorax seen. The cardiac silhouette size is within normal limits. The osseous structures are intact. Minimal multilevel dege nerative change of the spine. IMPRESSION: No acute cardiopulmonary process.
[2019-08-15] MEDS ORDERED: ONDANSETRON ODT 4 MG TAB PO STA (12:34)
[2019-08-15] MEDS ORDERED: IBUPROFEN 600 MG TAB PO STA (12:34)
--- NOTE | 2019-08-15 12:36 | ED ---
Fever HPI - General Chief Complaint: Fever Stated Complaint: fever Time Seen by Provider: 08/15/19 12:21 Source: patient, RN notes reviewed Mode of arrival: ambulatory Limitations: no limitations - History of Present Illness Initial Comments: 54-year-old female presents emergency from chief complaint fever cough congestion bodyaches nausea vomiting. Patient states that she's been sick last few days. Patient is to multiple sick contacts. Patient states she just aches had the toe. Denies any current vomiting states that she still is nauseated. Patient has not taken any pvao-[id number] cough and cold medications recent Tylenol Motrin. - Related Data Home Medications Medication Instructions Recorded Confirmed rOPINIRole HCL [Requip] 2 mg PO BID 07/14/17 01/02/19 Previous Rx's Medication Instructions Recorded Ondansetron Odt [Zofran Odt] 4 mg PO Q8HR PRN #10 tab 08/15/19 Allergies Allergy/AdvReac Type Severity Reaction Status Date / Time Penicillins Allergy Anaphylaxis Verified 08/15/19 11:12 pregabalin [From Lyrica] AdvReac Hallucinati Verified 08/15/19 11:12 ons tramadol [From Ultram] AdvReac Itching Verified 08/15/19 11:12 sleep aides AdvReac night Uncoded 08/15/19 11:12 terrors Review of Systems ROS Statement: Those systems with pertinent positive or pertinent negative responses have been documented in the HPI. ROS Other: All systems not noted in ROS Statement are negative. Past Medical History Past Medical History: GERD/Reflux, Musculoskeletal Disorder, Seizure Disorder, Skin Disorder Additional Past Medical History / Comment(s): RLS. DDD. LAST SEIZURE 2009 EST. HIATAL HERNIA. RASH ON ARMS, TO SEE TODAY. History of Any Multi-Drug Resistant Organisms: None Reported Past Surgical History: Section, Cholecystectomy, Hernia Repair, Hysterectomy, Orthopedic Surgery Additional Past Surgical History / Comment(s): C-SX3. TOTAL HYSTERECTOMY. ALEJO FOOT SX AT AGE 9 NOT SURE WHAT THEY DID. RT KNEE SX HAS STAPLE IN PLACE, RT SHOULDER SX FOR BONE SPUR. ALEJO HANDS. EGD 07/20/17. Past Anesthesia/Blood Transfusion Reactions: Motion Sickness, Postoperative Nausea & Vomiting (PONV) Additional Past Anesthesia/Blood Transfusion Reaction / Comment(s): SEVERE PONV. CLAUSTROPHOBIC Past Psychological History: No Psychological Hx Reported Smoking Status: Light tobacco smoker Past Alcohol Use History: Occasional Past Drug Use History: None Reported - Past Family History Father Family Medical History: Hypertension Additional Family Medical History / Comment(s): BACK SX -CHRONIC PAIN, Mother Family Medical History: No Reported History Additional Family Medical History / Comment(s): BACK SX. General Exam Limitations: no limitations General appearance: alert, in no apparent distress Head exam: Present: atraumatic, normocephalic, normal inspection Eye exam: Present: normal appearance, PERRL, EOMI. Absent: scleral icterus, conjunctival injection, periorbital swelling ENT exam: Present: normal exam, normal oropharynx, mucous membranes moist, TM's normal bilaterally Neck exam: Present: normal inspection, full ROM. Absent: tenderness, meningismus, lymphadenopathy Respiratory exam: Present: normal lung sounds bilaterally. Absent: respiratory distress, wheezes, rales, rhonchi, stridor Cardiovascular Exam: Present: normal rhythm, tachycardia, normal heart sounds. Absent: systolic murmur, diastolic murmur, rubs, gallop, clicks GI/Abdominal exam: Present: soft, normal bowel sounds. Absent: distended, tenderness, guarding, rebound, rigid Neurological exam: Present: alert, oriented X3, CN II-XII intact Course Vital Signs 08/15/19 11:10 Temperature 100.7 F H Pulse Rate 108 H Respiratory 22 Rate Blood Pressure 130/71 O2 Sat by Pulse 96 Oximetry Medical Decision Making - Medical Decision Making Chest x-rays unremarkable, influenza B-positive. Patient we discharged in stable condition with Tylenol Motrin return parameters were discussed. Patient symptoms have been greater than 48 hours and which Tamiflu was not given. - Lab Data Lab Results 08/15/19 Range/Units 11:10 Influenza Type A RNA Not Detected (Not Detectd) Influenza Type B (PCR) Detected H (Not Detectd) Disposition Clinical Impression: Influenza Disposition: HOME SELF-CARE Condition: Stable Instructions (If sedation given, give patient instructions): Fever in Adults (ED), Influenza (ED) Additional Instructions: Please return to the Emergency Department if symptoms worsen or any other concerns. Prescriptions: Ondansetron Odt [Zofran Odt] 4 mg PO Q8HR PRN #10 tab PRN Reason: Nausea Is patient prescribed a controlled substance at d/c from ED?: No Referrals: Con Dang DO [Primary Care Provider] - 1-2 days Time of Disposition: 12:36
[2019-08-15 13:06] VITALS: BP 125/72; PULSE 92; RESP 18; TEMP 100.8
== END 2019-08-15 13:00 | disposition home or self-care (01) ==
LOC: EC 10:28
DX: J10.1 Influenza due to other identified influenza virus with other respiratory manifestations (principal); F17.200 Nicotine dependence, unspecified, uncomplicated; Z79.899 Other long term (current) drug therapy; Z88.0 Allergy status to penicillin; Z88.8 Allergy status to other drugs, medicaments and biological substances; Z88.5 Allergy status to narcotic agent
CPT/HCPCS: 71046; 87502; 99283

== ENCOUNTER 2021-01-14 22:05 | Emergency (ER) | payer OTHER ==
[2021-01-14 22:40] VITALS: TEMP 98.1
[2021-01-14] MEDS ORDERED: KETOROLAC 15 MG/ML 1 ML VIAL IVP STA (23:52)
[2021-01-14] MEDS ORDERED: diphenhydrAMINE 50 MG/ML 1 ML VIAL IVP STA (23:52)
[2021-01-14] MEDS ORDERED: METOCLOPRAMIDE 5 MG/ML 2 ML VIAL IVP STA (23:52)
[2021-01-14] MEDS ORDERED: DEXAMETHASONE SOD PHOSPHATE 10 MG/ML 1 ML VIAL IV STA (23:53)
[2021-01-14] MEDS ORDERED: SODIUM CHLORIDE 0.9% 1,000 ML IV ONE (23:53)
--- NOTE | 2021-01-15 00:17 | XR ---
EXAMINATION TYPE: XR chest 2V DATE OF EXAM: 01/15/2021 COMPARISON: 08/15/2019 HISTORY: Cough TECHNIQUE: FINDINGS: Heart and mediastinum are normal. Lungs are clear. Diaphragm is normal. Bony thorax appears normal. IMPRESSION: Normal chest. No change.
--- NOTE | 2021-01-15 00:20 | CT ---
EXAMINATION TYPE: CT sinus wo con DATE OF EXAM: 01/15/2021 COMPARISON: None HISTORY: facil pain and pressure. CT DLP: 310.6 mGycm Automated exposure control for dose reduction was used. Images obtained from the mid mandible to the top of the frontal sinuses without contrast. There is normal aeration of the paranasal sinuses. There is some atrophy of the nasal turbinates. Orb ital margins are intact. There is no retro-orbital mass. The globes are symmetric. Nasal bone is inta ct. Maxilla is intact. There is no evidence of a blowout fracture. Zygomatic arches appear normal. Pa rotid glands are symmetric. IMPRESSION: Negative CT scan of the facial bones and paranasal sinuses.
[2021-01-15] MEDS ORDERED: HYDROmorphone 0.5 MG/0.5 ML SYRINGE IVP STA (01:26)
--- NOTE | 2021-01-15 01:28 | ED ---
General Adult HPI - General Chief complaint: ENT Stated complaint: poss sinus infection Time Seen by Provider: 01/14/21 23:09 Source: patient Mode of arrival: ambulatory Limitations: no limitations - History of Present Illness Initial comments: 55 year-old female patient presents to the emergency department for evaluation of sinus congestion and headache that started about a week ago. She states she has been having trouble with her sinuses for the last few months. States symptoms worsened over the last week. States she has tried many over the counter sinus medications which have not helped. Her doctor gave her antibiotics which she completed. Has a history of migraines but states this headache is different. States she does have a cough as well. Reports some sputum production. Denies any fever or chills. Patient denies any recent rash, cough, shortness of breath, chest pain, abdominal pain, nausea, vomiting, diarrhea, constipation, back pain, numbness, tingling, dizziness, weakness, hematuria, dysuria, urinary urgency, urinary frequency, or any other complaints. - Related Data Home Medications Medication Instructions Recorded Confirmed rOPINIRole HCL [Requip] 2 mg PO BID 07/14/17 01/02/19 Previous Rx's Medication Instructions Recorded Ondansetron Odt [Zofran Odt] 4 mg PO Q8HR PRN #10 tab 08/15/19 Allergies Allergy/AdvReac Type Severity Reaction Status Date / Time Penicillins Allergy Anaphylaxis Verified 01/14/21 22:37 pregabalin [From Lyrica] AdvReac Hallucinati Verified 01/14/21 22:37 ons tramadol [From Ultram] AdvReac Itching Verified 01/14/21 22:37 sleep aides AdvReac night Uncoded 01/14/21 22:37 terrors Review of Systems ROS Statement: Those systems with pertinent positive or pertinent negative responses have been documented in the HPI. ROS Other: All systems not noted in ROS Statement are negative. Past Medical History Past Medical History: GERD/Reflux, Musculoskeletal Disorder, Seizure Disorder, Skin Disorder Additional Past Medical History / Comment(s): RLS. DDD. LAST SEIZURE 2009 EST. HIATAL HERNIA. RASH ON ARMS, TO SEE TODAY. History of Any Multi-Drug Resistant Organisms: None Reported Past Surgical History: Section, Cholecystectomy, Hernia Repair, Hysterectomy, Orthopedic Surgery Additional Past Surgical History / Comment(s): C-SX3. TOTAL HYSTERECTOMY. ALEJO FOOT SX AT AGE 9 NOT SURE WHAT THEY DID. RT KNEE SX HAS STAPLE IN PLACE, RT SHOULDER SX FOR BONE SPUR. ALEJO HANDS. EGD 07/20/17. Past Anesthesia/Blood Transfusion Reactions: Motion Sickness, Postoperative Nausea & Vomiting (PONV) Additional Past Anesthesia/Blood Transfusion Reaction / Comment(s): SEVERE PONV. CLAUSTROPHOBIC Past Psychological History: No Psychological Hx Reported Smoking Status: Current every day smoker Past Alcohol Use History: Occasional Past Drug Use History: None Reported - Past Family History Father Family Medical History: Hypertension Additional Family Medical History / Comment(s): BACK SX -CHRONIC PAIN, Mother Family Medical History: No Reported History Additional Family Medical History / Comment(s): BACK SX. General Exam Limitations: no limitations General appearance: alert, in no apparent distress, other (This is a well- developed, well-nourished adult female patient in no acute distress. Vital signs upon presentation are temperature 98.1F, pulse 82, respirations 20, blood pressure 132/74, pulse ox 100% on room air.) Eye exam: Present: normal appearance, PERRL, EOMI. Absent: scleral icterus, conjunctival injection, periorbital swelling ENT exam: Present: normal exam, normal oropharynx, mucous membranes moist Respiratory exam: Present: normal lung sounds bilaterally. Absent: respiratory distress, wheezes, rales, rhonchi, stridor Cardiovascular Exam: Present: regular rate, normal rhythm, normal heart sounds. Absent: systolic murmur, diastolic murmur, rubs, gallop, clicks Neurological exam: Present: alert, oriented X3, CN II-XII intact Psychiatric exam: Present: normal affect, normal mood Skin exam: Present: warm, dry, intact, normal color. Absent: rash Course Vital Signs 01/14/21 01/15/21 22:37 01:49 Temperature 98.1 F Pulse Rate 82 71 Respiratory 20 18 Rate Blood Pressure 132/74 136/74 O2 Sat by Pulse 100 99 Oximetry Medical Decision Making - Medical Decision Making 35-year-old female patient presents to the emergency department today for evaluation of sinus congestion and pressure as well as headache. Physical examination is unremarkable. She is neurologically intact with no focal deficits. CT sinuses was negative. She is afebrile, vitals. She was given IV medication for pain. She'll be discharged home with injections follow-up with her primary care physician for recheck in 1-2 days. Return parameters were discussed in detail. She verbalizes understanding and agrees with this plan. My attending is Dr. Rosenberg. - Radiology Data Radiology results: report reviewed, image reviewed CT sinus without contrast was obtained. Report is reviewed in its entirety. Impression by Dr. Brennan shows negative computed tomography scan of the facial bones and paranasal sinuses. Chest x-ray shows normal chest no change. Disposition Clinical Impression: Headache Disposition: HOME SELF-CARE Condition: Good Instructions (If sedation given, give patient instructions): Acute Headache (ED) Additional Instructions: Follow-up with your primary care physician for recheck in 1-2 days. Return to the emergency department for any new, worsening, or concerning symptoms. Is patient prescribed a controlled substance at d/c from ED?: No Referrals: Con Dang DO [Primary Care Provider] - 1-2 days Time of Disposition: 01:27
[2021-01-15 01:51] VITALS: BP 136/74; PULSE 71; RESP 18
== END 2021-01-15 01:51 | disposition home or self-care (01) ==
LOC: EC 22:05
DX: R51.9 Headache, unspecified (principal); R09.89 Other specified symptoms and signs involving the circulatory and respiratory systems; R05 Cough; F17.200 Nicotine dependence, unspecified, uncomplicated; Z88.0 Allergy status to penicillin; Z88.6 Allergy status to analgesic agent; Z88.8 Allergy status to other drugs, medicaments and biological substances; Z86.69 Personal history of other diseases of the nervous system and sense organs
CPT/HCPCS: 99284; 96374; 96361; 71046; 70486; 96375; J1200; J1100; J2765; J1885; J1170

== ENCOUNTER 2023-01-03 20:55 | Emergency (ER) | payer OTHER ==
[2023-01-03] MEDS ORDERED: MORPHINE SULFATE 4 MG/ML SYRINGE IV STA ×2 (21:54→22:57)
[2023-01-03] MEDS ORDERED: ASPIRIN 81 MG PO STA (21:54)
--- NOTE | 2023-01-03 22:10 | XR ---
EXAMINATION TYPE: XR chest 2V DATE OF EXAM: 01/03/2023 10:02 PM COMPARISON: Chest radiographs from 01/15/2021 TECHNIQUE: XR chest 2V Frontal and lateral views of the chest. CLINICAL INDICATION:Female, 57 years old with history of Chest Pain; FINDINGS: Lungs/Pleura: There is no evidence of pleural effusion, focal consolidation, or pneumothorax. Pulmonary vascularity: Unremarkable. Heart/mediastinum: Cardiomediastinal silhouette is unremarkable. Musculoskeletal: No acute osseous pathology. IMPRESSION: No acute cardiopulmonary disease/process.
[2023-01-03 22:12] LABS: ALT 25 U/L (4-34); AST 25 U/L (14-36); African American GFR (CKD) >90 (>60 ml/min/1.73 sqM); Alkaline Phosphatase 77 U/L (38-126); Amylase 44 U/L (30-110); Anion Gap 9 mmol/L; Basophils % (A) 1 %; Blood Urea Nitrogen 20 mg/dL (7-17); Calcium 9.7 mg/dL (8.4-10.2); Carbon Dioxide 24 mmol/L (22-30); Chloride 106 mmol/L (98-107); Eosinophils # (A) 0.2 k/uL (0-0.7); Eosinophils % (A) 2 %; Glucose 87 mg/dL (74-99); HCT 40.9 % (34.0-46.0); HGB 13.6 gm/dL (11.4-16.0); Lipase 107 U/L (23-300); Lymphocytes # (A) 2.9 k/uL (1.0-4.8); Lymphocytes % (A) 43 %; MCH 33.6 pg (25.0-35.0); MCHC 33.4 g/dL (31.0-37.0); MCV 100.8 fL (80.0-100.0); Macrocytosis Slight; Magnesium 1.8 mg/dL (1.6-2.3); Mean Platelet Volume 8.1; Monocytes # (A) 0.3 k/uL (0-1.0); Monocytes % (A) 5 %; Neutrophils # (A) 3.2 k/uL (1.3-7.7); Neutrophils % (A) 47 %; Non-African American GFR(CKD) 89 (>60 ml/min/1.73 sqM); Platelet Count 242 k/uL (150-450); Potassium 3.8 mmol/L (3.5-5.1); RBC 4.06 m/uL (3.80-5.40); RDW 13.5 % (11.5-15.5); Sodium 139 mmol/L (137-145); Total Bilirubin 0.7 mg/dL (0.2-1.3); Total Protein 6.6 g/dL (6.3-8.2); WBC 6.8 k/uL (3.8-10.6)
[2023-01-03 22:21] LABS: INR 0.9 (<1.2); Partial Thromboplastin Time 22.2 sec (22.0-30.0); Prothrombin Time 9.9 sec (9.0-12.0)
[2023-01-03] MEDS ORDERED: ONDANSETRON 4 MG/2 ML VIAL IVP STA (22:28)
--- NOTE | 2023-01-03 22:57 | ED ---
General Adult HPI - General Chief complaint: Chest Pain Stated complaint: Chest pain, SOB Time Seen by Provider: 01/03/23 21:17 Source: patient Mode of arrival: wheelchair Limitations: no limitations - History of Present Illness Initial comments: This patient is 57-year-old woman who presents to evaluation of substernal burning chest pain that started approximately 3 hours ago while at rest. She also has been having some associated nausea. She did not note any other anginal type symptoms, no dyspnea, diaphoresis, palpitations, lightheadedness or s yncope. Onset/Timin -: hour(s) Location: chest Radiation: non-radiation Quality: burning Consistency: constant Improves with: none Worsens with: none Associated Symptoms: nausea/vomiting Treatments Prior to Arrival: none - Related Data Home Medications Medication Instructions Recorded Confirmed rOPINIRole HCL [Requip] 2 mg PO BID 07/14/17 01/02/19 Previous Rx's Medication Instructions Recorded Ondansetron Odt [Zofran Odt] 4 mg PO Q8HR PRN #10 tab 08/15/19 Famotidine [Pepcid] 20 mg PO BID #14 tablet 01/04/23 Allergies Allergy/AdvReac Type Severity Reaction Status Date / Time Penicillins Allergy Anaphylaxis Verified 01/03/23 20:59 pregabalin [From Lyrica] AdvReac Hallucinati Verified 01/03/23 20:59 ons tramadol [From Ultram] AdvReac Itching Verified 01/03/23 20:59 sleep aides AdvReac night Uncoded 01/03/23 20:59 terrors Review of Systems ROS Statement: Those systems with pertinent positive or pertinent negative responses have been documented in the HPI. ROS Other: All systems not noted in ROS Statement are negative. Constitutional: Denies: fever, chills Respiratory: Denies: cough, dyspnea Cardiovascular: Reports: chest pain. Denies: palpitations, edema Gastrointestinal: Reports: nausea. Denies: abdominal pain, vomiting, diarrhea Genitourinary: Denies: dysuria, hematuria Musculoskeletal: Denies: back pain Skin: Denies: rash Neurological: Denies: headache, weakness Past Medical History Past Medical History: GERD/Reflux, Musculoskeletal Disorder, Seizure Disorder, Skin Disorder Additional Past Medical History / Comment(s): RLS. DDD. LAST SEIZURE 2009 EST. HIATAL HERNIA. RASH ON ARMS, TO SEE DR PEACE. History of Any Multi-Drug Resistant Organisms: None Reported Past Surgical History: Section, Cholecystectomy, Hernia Repair, Hysterectomy, Orthopedic Surgery Additional Past Surgical History / Comment(s): C-SX3. TOTAL HYSTERECTOMY. ALEJO FOOT SX AT AGE 9 NOT SURE WHAT THEY DID. RT KNEE SX HAS STAPLE IN PLACE, RT SHOULDER SX FOR BONE SPUR. ALEJO HANDS. EGD 07/20/17. Past Anesthesia/Blood Transfusion Reactions: Motion Sickness, Postoperative Javier sea & Vomiting (PONV) Additional Past Anesthesia/Blood Transfusion Reaction / Comment(s): SEVERE PONV. CLAUSTROPHOBIC Past Psychological History: No Psychological Hx Reported Smoking Status: Current every day smoker Past Alcohol Use History: Occasional Past Drug Use History: None Reported - Past Family History Father Family Medical History: Hypertension Additional Family Medical History / Comment(s): BACK SX -CHRONIC PAIN, Mother Family Medical History: No Reported History Additional Family Medical History / Comment(s): BACK SX. General Exam Limitations: no limitations General appearance: alert, in no apparent distress Head exam: Present: atraumatic, normocephalic Eye exam: Present: normal appearance. Absent: scleral icterus, conjunctival injection ENT exam: Present: normal oropharynx Neck exam: Present: normal inspection Respiratory exam: Present: normal lung sounds bilaterally. Absent: respiratory distress, wheezes, rales, rhonchi, stridor, chest wall tenderness, accessory muscle use Cardiovascular Exam: Present: regular rate, normal rhythm, normal heart sounds. Absent: systolic murmur, diastolic murmur, rubs, gallop GI/Abdominal exam: Present: soft. Absent: distended, tenderness, guarding, rebound, rigid, mass Extremities exam: Present: normal inspection, normal capillary refill. Absent: pedal edema, calf tenderness Back exam: Present: normal inspection. Absent: CVA tenderness (R), CVA tenderness (L) Neurological exam: Present: alert Skin exam: Present: warm, dry, intact, normal color. Absent: rash Course Vital Signs 01/03/23 01/03/23 01/03/23 20:57 21:27 21:32 Temperature 98.4 F Pulse Rate 90 74 70 Respiratory 18 18 Rate Blood Pressure 153/86 127/68 127/68 O2 Sat by Pulse 99 97 98 Oximetry 01/03/23 01/03/23 01/03/23 22:42 23:00 23:23 Temperature Pulse Rate 75 73 76 Respiratory 18 14 18 Rate Blood Pressure 114/60 114/60 119/58 O2 Sat by Pulse 98 97 99 Oximetry 01/04/23 00:22 Temperature 98.0 F Pulse Rate 65 Respiratory 16 Rate Blood Pressure 120/76 O2 Sat by Pulse 98 Oximetry EKG Findings - EKG Results: EKG: interpreted by PIPPA, sinus rhythm (Rate 75 bpm), normal axis, normal QRS, normal ST/T Medical Decision Making - Medical Decision Making This patient's 57-year-old woman presenting with substernal burning type chest pain. Her initial workup here is negative. The patient did have resolution of symptoms with the GI cocktail. While the results were back I did discuss admission to have serial enzymes, telemetry monitoring, cardiology consultation, but this point patient states she feels well and would do the symptoms as outpatient. She will return should any symptoms recur or if anything new develops. Discussed appropriate return parameters as well as the appropriate follow-up. Patient to be a chest x-ray which I interpreted as being negative for acute infiltrate, congestive heart failure, pneumothorax. Was pt. sent in by a medical professional or institution (, PA, ACCOUNT ASSISTANT, urgent care, hospital, or [facility]...) When possible be specific @ -[No] Did you speak to anyone other than the patient for history (EMS, parent, family, police, friend...)? What history was obtained from this source @ -[No] Did you review nursing and triage notes (agree or disagree)? Why? @ -[I reviewed and agree with nursing and triage notes] Were old charts reviewed (outside hosp., previous admission, EMS record, old EKG, old radiological studies, urgent care reports/EKG's, [facility] records)? Report findings @ -[No old charts were reviewed] Differential Diagnosis (chest pain, altered mental status, abdominal pain women, abdominal pain men, vaginal bleeding, weakness, fever, dyspnea, syncope, headache, dizziness, GI bleed, back pain, seizure, CVA, palpatations, mental health, musculoskeletal)? @ -[Differential Chest Pain: Stable Angina, Unstable Angina, STEMI, NSTEMI Aortic Dissection, Pneumothorax, Musculoskeletal, Esophageal Spasm GERD, Cholecystitis, Pancreatitis, Zoster, this is not meant to be an all-inclusive list. EKG interpreted by me (3pts min.). @ -[As above] X-rays interpreted by me (1pt min.). @ -[As above CT interpreted by me (1pt min.). @ -[None done] U/S interpreted by me (1pt. min.). @ -[None done] What testing was considered but not performed or refused? (CT, X-rays, U/S, labs )? Why? @ -[None] What meds were considered but not given or refused? Why? @ -[None] Did you discuss the management of the patient with other professionals (professionals i.e. Dr., PA, ACCOUNT ASSISTANT, lab, RT, psych nurse, social sciences department chair, it risk advisor, teacher, aerospace engineer officer armament, lead case manager)? Give summary @ -[No] Was smoking cessation discussed for >3mins.? @ -[No] Was critical care preformed (if so, how long)? @ -[No] Were there social determinants of health that impacted care today? How? (Homelessness, low income, unemployed, alcoholism, drug addiction, transportation, low edu. Level, literacy, decrease access to med. care, long-term, rehab)? @ -[No] Was there de-escalation of care discussed even if they declined (Discuss DNR or withdrawal of care, Hospice)? DNR status @ -[No] What co-morbidities impacted this encounter? (DM, HTN, Smoking, COPD, CAD, Cancer, CVA, ARF, Chemo, Hep., AIDS, mental health diagnosis, sleep apnea, morbid obesity)? @ -[None] Was patient admitted / discharged? Hospital course, mention meds given and route, prescriptions, significant lab abnormalities, going to OR and other pert inent info. @ -[Discharged as above Undiagnosed new problem with uncertain prognosis? @ -[No] Drug Therapy requiring intensive monitoring for toxicity (Heparin, Nitro, Insulin, Cardizem)? @ -[No] Were any procedures done? @ -[No] Diagnosis/symptom? @ -[Acute chest pain, uncomplicated Acute, or Chronic, or Acute on Chronic? @ -[default] Uncomplicated (without systemic symptoms) or Complicated (systemic symptoms)? @ -[default] Side effects of treatment? @ -[No] Exacerbation, Progression, or Severe Exacerbation? @ -[No] Poses a threat to life or bodily function? How? (Chest pain, [place], [place], pneumonia, PE, COPD, DKA, ARF, appy, cholecystitis, CVA, Diverticulitis, Homicidal, Suicidal, threat to staff... and all critical care pts) @ -[No] - Lab Data Result diagrams: 01/03/23 21:56 01/03/23 21:56 Lab Results 01/03/23 01/03/23 01/03/23 Range/Units 21:56 21:56 21:56 WBC 6.8 (3.8-10.6) k/uL RBC 4.06 (3.80-5.40) m/uL Hgb 13.6 (11.4-16.0) gm/dL Hct 40.9 (34.0-46.0) % MCV 100.8 H (80.0-100.0) fL MCH 33.6 (25.0-35.0) pg MCHC 33.4 (31.0-37.0) g/dL RDW 13.5 (11.5-15.5) % Plt Count 242 (150-450) k/uL MPV 8.1 Neutrophils % 47 % Lymphocytes % 43 % Monocytes % 5 % Eosinophils % 2 % Basophils % 1 % Neutrophils # 3.2 (1.3-7.7) k/uL Lymphocytes # 2.9 (1.0-4.8) k/uL Monocytes # 0.3 (0-1.0) k/uL Eosinophils # 0.2 (0-0.7) k/uL Basophils # 0.0 (0-0.2) k/uL Macrocytosis Slight PT 9.9 (9.0-12.0) sec INR 0.9 (<1.2) APTT 22.2 (22.0-30.0) sec D-Dimer 0.40 (<0.60) mg/L FEU Sodium 139 (137-145) mmol/L Potassium 3.8 (3.5-5.1) mmol/L Chloride 106 (98-107) mmol/L Carbon Dioxide 24 (22-30) mmol/L Anion Gap 9 mmol/L BUN 20 H (7-17) mg/dL Creatinine 0.75 (0.52-1.04) mg/dL Est GFR (CKD-EPI)AfAm >90 (>60 ml/min/1.73 sqM) Est GFR (CKD-EPI)NonAf 89 (>60 ml/min/1.73 sqM) Glucose 87 (74-99) mg/dL Calcium 9.7 (8.4-10.2) mg/dL Magnesium 1.8 (1.6-2.3) mg/dL Total Bilirubin 0.7 (0.2-1.3) mg/dL AST 25 (14-36) U/L ALT 25 (4-34) U/L Alkaline Phosphatase 77 (38-126) U/L Troponin I (0.000-0.034) ng/mL Total Protein 6.6 (6.3-8.2) g/dL Albumin 4.0 (3.5-5.0) g/dL Amylase 44 (30-110) U/L Lipase 107 (23-300) U/L 01/03/23 Range/Units 21:56 WBC (3.8-10.6) k/uL RBC (3.80-5.40) m/uL Hgb (11.4-16.0) gm/dL Hct (34.0-46.0) % MCV (80.0-100.0) fL MCH (25.0-35.0) pg MCHC (31.0-37.0) g/dL RDW (11.5-15.5) % Plt Count (150-450) k/uL MPV Neutrophils % % Lymphocytes % % Monocytes % % Eosinophils % % Basophils % % Neutrophils # (1.3-7.7) k/uL Lymphocytes # (1.0-4.8) k/uL Monocytes # (0-1.0) k/uL Eosinophils # (0-0.7) k/uL Basophils # (0-0.2) k/uL Macrocytosis PT (9.0-12.0) sec INR (<1.2) APTT (22.0-30.0) sec D-Dimer (<0.60) mg/L FEU Sodium (137-145) mmol/L Potassium (3.5-5.1) mmol/L Chloride (98-107) mmol/L Carbon Dioxide (22-30) mmol/L Anion Gap mmol/L BUN (7-17) mg/dL Creatinine (0.52-1.04) mg/dL Est GFR (CKD-EPI)AfAm (>60 ml/min/1.73 sqM) Est GFR (CKD-EPI)NonAf (>60 ml/min/1.73 sqM) Glucose (74-99) mg/dL Calcium (8.4-10.2) mg/dL Magnesium (1.6-2.3) mg/dL Total Bilirubin (0.2-1.3) mg/dL AST (14-36) U/L ALT (4-34) U/L Alkaline Phosphatase (38-126) U/L Troponin I <0.012 (0.000-0.034) ng/mL Total Protein (6.3-8.2) g/dL Albumin (3.5-5.0) g/dL Amylase (30-110) U/L Lipase (23-300) U/L Disposition Clinical Impression: Chest pain, Gastroesophageal reflux Disposition: HOME SELF-CARE Condition: Good Instructions (If sedation given, give patient instructions): Chest Pain (ED) Prescriptions: Famotidine [Pepcid] 20 mg PO BID #14 tablet Is patient prescribed a controlled substance at d/c from ED?: No Referrals: Nonstaff,Physician [REFERRING] - 1-2 days Devyn Perez MD [STAFF PHYSICIAN] - 1-2 days
[2023-01-04] MEDS ORDERED: MAG HYDROX/AL HYDROX/SIMETH 30 ML, HYOSCYAMINE ELIXIR 10 ML, LIDOCAINE 2% GLYDO JELLY 1... PO STA ×3 (00:01)
[2023-01-04] MEDS ORDERED: METOCLOPRAMIDE 5 MG/ML 2 ML VIAL IVP STA (00:01)
[2023-01-04 02:19] VITALS: BP 120/76; PULSE 65; RESP 16; TEMP 98
== END 2023-01-04 00:53 | disposition home or self-care (01) ==
LOC: EC 20:55
DX: K21.9 Gastro-esophageal reflux disease without esophagitis (principal); F17.200 Nicotine dependence, unspecified, uncomplicated; Z90.49 Acquired absence of other specified parts of digestive tract; Z88.0 Allergy status to penicillin; Z88.5 Allergy status to narcotic agent; Z88.8 Allergy status to other drugs, medicaments and biological substances
CPT/HCPCS: 36415; 93005; 85379; 80053; 82150; 83690; 83735; 84484; 85025; 85610; 85730; 71046; 99285; 96374; 96375 ×2; 96376; J2270; J2765; J2405